=== PATIENT | male | born 1950 | race Caucasian/White ===

== ENCOUNTER 2020-10-30 10:01 | Outpatient (CLI) | payer BC, MEDICARE ==
--- NOTE | 2020-10-30 10:50 | XRAY Report ---
PROCEDURE: Foot 2 View LT INDICATIONS: LEFT FOOT ULCER TECHNIQUE: 2 views of the foot were acquired. COMPARISON: None FINDINGS: Bones: No fractures or dislocations. No suspicious bony lesions. No osseous erosive change or perio steal reaction. Plantar and dorsal calcaneal bone spur is noted. Soft tissues: No tibiotalar joint effusion. Achilles tendon appears normal. No soft tissue gas. IMPRESSION: No savana evidence of osteomyelitis. Please note plain from radiographs can be insensitive to changes of osteoarthritis in the initial 15 days and if there is continued clinical concern for myelitis, a t hree-phase nuclear medicine bone scan should be considered for further evaluation. Reviewed by: Magda Winston MD, PhD on 10/30/2020 10:48 AM PDT Approved by: Magda Winston MD, PhD on 10/30/2020 10:48 AM PDT Station ID: [id number]
[2020-10-30 14:34] LABS: BASOPHILS % (AUTO) 0.8 %; EOSINOPHILS # (AUTO) 0.2 10^3/uL (0.0-0.7); EOSINOPHILS % (AUTO) 4.4 %; HCT - HEMATOCRIT 46.5 % (42.0-52.0); HGB - HEMOGLOBIN 15.3 g/dL (14.0-18.0); LYMPHOCYTES # (AUTO) 1.7 10^3/uL (1.5-3.5); LYMPHOCYTES % (AUTO) 33.3 %; MEAN CORPUSCULAR HEMOGLOBIN 29.6 pg (27.0-31.0); MEAN CORPUSCULAR HGB CONC 32.9 g/dL (32.0-36.0); MEAN CORPUSCULAR VOLUME 89.9 fL (80.0-94.0); MEAN PLATELET VOLUME 9.6 fL (7.4-11.4); MONOCYTES # (AUTO) 0.5 10^3/uL (0.0-1.0); NEUTROPHILS # (AUTO) 2.6 10^3/uL (1.5-6.6); NEUTROPHILS % (AUTO) 52.3 %; PLT - PLATELET COUNT 250 10^3/uL (130-450); RED BLOOD COUNT 5.17 10^6/uL (4.70-6.10); RED CELL DISTRIBUTION WIDTH 12.1 % (12.0-15.0)
[2020-10-30 15:20] LABS: CREATININE,URINE 124.2 mg/dL; MICROALBUM/CREATININE RATIO,UR 16.9 ug/mg (<30.0); MICROALBUMIN,URINE 2.1 mg/dL (0-300.0)
[2020-10-30 15:30] LABS: ALBUMIN 4.4 g/dL (3.2-5.5); ALBUMIN/GLOBULIN RATIO 1.4 (1.0-2.2); ALKALINE PHOSPHATASE 48 IU/L (42-121); ALT ALANINE AMINOTRANSFERASE 17 IU/L (10-60); AST ASPARTATE AMINOTRANSFERASE 20 IU/L (10-42); BILIRUBIN,TOTAL 1.3 mg/dL (0.2-1.0); BUN - BLOOD UREA NITROGEN 26 mg/dL (6-20); CALCIUM 9.5 mg/dL (8.5-10.3); CARBON DIOXIDE - CO2 30 mmol/L (21-32); CHLORIDE 103 mmol/L (101-111); CHOL/HDL RATIO 4.3 (<5.0); CHOLESTEROL 242 mg/dL; CREATININE 0.9 mg/dL (0.6-1.2); GFR - MDRD 84 (>89); GLUCOSE 72 mg/dL (70-100); HDL CHOLESTEROL 56 mg/dL; LDL CHOLESTEROL,CALCULATED 161 mg/dL; LDL/HDL RATIO 2.9 (<3.6); POTASSIUM 4.1 mmol/L (3.5-5.0); SODIUM 139 mmol/L (135-145); TOTAL PROTEIN 7.5 g/dL (6.7-8.2); TRIGLYCERIDES 123 mg/dL; VLDL CHOLESTEROL 25 mg/dL
[2020-10-30 19:58] LABS: ESTIMATED AVERAGE GLUCOSE 194 mg/dL (70-100); HEMOGLOBIN A1c% 8.4 % (4.27-6.07)
== END 2020-10-30 23:59 | disposition home or self-care (01) ==
LOC: DI.S 10:01
PROVIDERS: ATTEND Physician Assistant Medical
DX: E11.621 Type 2 diabetes mellitus with foot ulcer (principal); E78.5 Hyperlipidemia, unspecified
CPT/HCPCS: 36415; 80053; 80061; 82043; 82570; 83036; 83721; 85025; 87070; 87077; 87181; 87205

== ENCOUNTER 2020-12-29 13:59 | Outpatient (CLI) | payer MEDICARE | END 2020-12-29 14:00 | disposition short-term general hospital (02) | LOC: EMS 13:59 | DX: R53.1 Weakness (principal); R05 Cough; R11.10 Vomiting, unspecified | CPT/HCPCS: A0425; A0429 ==

== ENCOUNTER 2021-01-05 23:39 | Outpatient (CLI) | payer MEDICARE | END 2021-01-05 23:40 | disposition short-term general hospital (02) | LOC: EMS 23:39 | DX: R10.9 Unspecified abdominal pain (principal); R11.0 Nausea | CPT/HCPCS: A0425; A0427 ==

== ENCOUNTER 2021-01-09 15:00 | Inpatient (IN) | payer MEDICARE ==
--- OUTSIDE RECORDS SUMMARY | 2021-01-09 15:04 | EXTERNAL MEDICAL SUMMARY RPT | Continuity of Care Document ---
:1950 Demographics Phone Unavailable Preferred Language Unknown Marital Status Unknown Caodaism Affiliation Unknown Race Unknown Ethnic Group Unknown Author Organization [facility] Address [address] [place] [address] Phone Care Team Providers Name Role Phone Registrar Unavailable Unavailable PA-C Unavailable Unavailable Nurse Unavailable Unavailable [place] Unavailable Unavailable Referrals Unavailable Unavailable Referrals Unavailable Unavailable Allergies Encounters Medications date description facility 20201113 INSULIN NPH HUMAN (ISOPHANE) Walk-In [facility] [place] [phone] [facility]IRIN [facility] [place] [id number] ASPIRIN [facility] [place] [phone] INSULIN NPH HUMAN (ISOPHANE) [facility]-In [facility] [place] [id number] SIMVASTATIN [facility] [place] [id number] CEPHALEXIN [facility] [place] [phone] INSULIN SYRINGE-NEEDLE U-100 Walk-In [facility] Care & [facility] [place] [phone] SIMVASTATIN [facility] [place] [phone] CEPHALEXIN [facility] [place] [phone] SIMVASTATIN [facility] [place] [phone] CEPHALEXIN [facility] [place] [phone] INSULIN SYRINGE-NEEDLE U-100 Walk-In [facility] [place] [phone] SIMVASTATIN [facility] [place] [phone] CEPHALEXIN [facility] [place] [phone] SIMVASTATIN [facility] [place] [id number] CEPHALEXIN [facility] [place] [phone] INSULIN SYRINGE-NEEDLE U-100 Walk-In [facility] [place] [phone] SIMVASTATIN [facility] [place] [phone] CEPHALEXIN [facility] [place] [phone] SIMVASTATIN [facility] [place] [phone] CEPHALEXIN [facility] [place] [phone] INSULIN SYRINGE-NEEDLE U-[address] Walk-In [facility] [place] [phone] SIMVASTATIN [facility] [place] [id number] CEPHALEXIN [facility] [place] [phone] SIMVASTATIN [facility] [place] [phone] CEPHALEXIN [facility] [place] 20201030 INSULIN SYRINGE-NEEDLE U-[address] Walk-In [facility] [place] [phone] SIMVASTATIN [facility] [place] 20201030 CEPHALEXIN [facility] [place] [phone] SIMVASTATIN [facility] [place] 20201030 CEPHALEXIN [facility] [place] 20201030 INSULIN SYRINGE-NEEDLE U-[address] Walk-In [facility] [place] [phone] SIMVASTATIN [facility] [place] 20201030 CEPHALEXIN [facility] [place] Problems date description facility 20201113 Total score? [facility] [place] 20201113 Tobacco use and exposure Walk-In [facility] & [facility] Services [facility] [place] 20201113 Tobacco smoking status NHIS Walk-In [facility] Primary Care & Ancillary Services [place] 20201113 Patient Health Questionnaire 2 item Wa lk-In Clinic Primary Care & (PHQ2) total score Ancillary Services [facility] [place] 20201113 Never smoker [facility] [place] 20201113 Malignant melanoma of skin of lower Wa lk-In Clinic Primary Care & limb, including hip Ancillary Services [facility] [place] 20201113 Malignant melanoma of left lower limb, Walk-In [facility] Primary [facility] & including hip [facility] [place] 20201113 Malignant melanoma of foot Walk-In [facility] Primary Care & [facility]illary Services [place] 20201113 Lymphadenopathy [facility] [place] 20201113 Little interest or pleasure in doing W alk-In Clinic Primary Care & things? Ancillary Services [place] 20201113 Generalized enlarged lymph nodes Walk- In [facility] Primary Care & Ancillary Services [place] 20201113 Feeling down, depressed, or hopeless? [facility] [place] 20201113 Enlargement of lymph nodes [facility] [place] 20201113 Details of drug misuse behavior [facility] [place] 20201113 Alcohol use [facility] [place] 20201104 Malignant melanoma of foot [facility] [place] 20201104 Exercise [facility] [place] 20201104 Total score? 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 left lower limb, Ancillar y Services [place] including hip 20201104 Tobacco use and exposure [facility] & [facility] [place] 20201104 Tobacco smoking status NHIS Walk-In in [facility] Care & [facility] Services [facility] [place] 20201104 Malignant melanoma of skin of lower Wa lk-In Clinic Primary Care & limb, including hip Ancillary Services [facility] [place] 20201104 Alcohol use [facility] [place] 20201104 Never smoker [facility] [place] 20201104 Health-related behavior [facility] [place] 20201104 Details of drug misuse behavior [facility] [place] 20201031 Details of drug misuse behavior [facility] [place] 20201031 Never smoker [facility] [place] 20201031 Health-related behavior [facility] [place] 20201031 Tobacco use and exposure [facility] [place] 20201031 Exercise [facility] [place] 20201031 Total score? 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 Walk[facility]In Clinic [facility] Care & Ancillary Services [facility] 20201030 Never smoker Walk-In [facility] Care & Ancillary Services [facility] 20201030 XR FOOT 2 VIEWS Walk-In Clinic [facility] Care & Ancillary Services [facility] 20201030 MICROALBUMIN/CREAT RATIO Walk[facility] 20201030 LIPIDS SCREEN Walk-In Clinic [facility] Care & Ancillary Services [facility] 20201030 Exercise Walk-In Clinic [facility] Care & Ancillary Services [facility] 20201030 Ulcer of left foot due to type 2 Walk- In Clinic Primary Care & diabetes mellitus [facility] 20201030 HGBA1C Walk-In Clinic [facility] Care & Ancillary Services [facility] 20201030 CBC W/Diff/Plt Walk-In Clinic [facility] Care & Ancillary Services [facility] 20201030 Alcohol use Walk-In Clinic [facility] Care & Ancillary Services [place] Procedures date description facility 20201030 Boostrix Intramuscular Suspension Walk -In Clinic Primary Care & 5-2.5-18.5 Ancillary Services [facility] 20201030 First Ix admin via ID IM or jet Walk-I n Clinic Primary Care & injects with counseling by physician [facility] Services [place] for adult 20201030 CBC W/Diff/Plt Walk-In Clinic [facility] 20201030 HGBA1C Walk-In Clinic [facility] Care & Ancillary Services [facility] 20201030 LIPIDS SCREEN Walk-In [facility] 20201030 COMPREHENSIVE METABOLIC PANEL Walk-In [facility] Primary Care & Ancillary Services [facility] 20201030 XR FOOT 2 VIEWS Walk-In Clinic [facility] Care & Ancillary Services [facility] 20201030 Boostrix Intramuscular Suspension Walk -In Clinic Primary Care & -2.5-18.5 [facility] 20201030 First Ix admin via ID IM or jet [facility] Primary Care & injects with counseling by physician [facility] [place] for adult 20201030 CBC W/Diff/Plt [facility] [place] 20201030 HGBA1C [facility] [place] [facility] [place] 20201030 LIPIDS SCREEN [facility] [place] [facility] [place] 20201030 COMPREHENSIVE METABOLIC PANEL [facility] [place] 20201030 XR FOOT 2 VIEWS [facility] [place] 20201030 Boostrix Intramuscular Suspension Walk -In [facility] Primary Care & 5-2.5-18.5 [facility]illary Services [facility] [place] 20201030 First Ix admin via ID IM or jet [facility] Primary [facility] & injects with counseling by physician [facility] [place] for adult 20201030 CBC W/Diff/Plt [facility] [place] [place] 20201030 HGBA1C [facility] [place] [facility] [place] 20201030 LIPIDS SCREEN [facility] [place] [facility] [place] 20201030 COMPREHENSIVE METABOLIC PANEL [facility] [place] 20201030 XR FOOT 2 VIEWS [facility] [place] [facility] [place] 20201030 Boostrix Intramuscular Suspension Walk -In [facility] Primary Care & 5-2.5-18.5 Ancillary Services [facility] [place] 20201030 First Ix admin via ID IM or jet [facility] Primary Care & injects with counseling by physician [facility] [place] for adult 20201030 CBC W/Diff/Plt [facility] [place] 20201030 HGBA1C [facility] [place] [facility] [place] 20201030 LIPIDS SCREEN [facility] [place] [facility] [place] 20201030 COMPREHENSIVE METABOLIC PANEL [facility] [place] 20201030 XR FOOT 2 VIEWS [facility] [place] [facility] [place] 20201030 Boostrix Intramuscular Suspension Walk -In Clinic Primary Care & 5-2.5-18.5 Ancillary Services [place] 20201030 First Ix admin via ID IM or jet [facility] [place] [facility] [id number] CBC W/Diff/Plt Walk-In Clinic [facility] Care & [facility]illary Services [place] 20201030 HGBA1C Walk[facility]In [facility] Care & [facility] [place] 20201030 LIPIDS SCREEN Walk-In [facility] Care & [facility] [place] 20201030 COMPREHENSIVE METABOLIC PANEL [facility] [place] 20201030 XR FOOT 2 VIEWS Walk-In [facility] Care & [facility]illary Services [place] 20201030 Boostrix Intramuscular Suspension Walk -In Clinic Primary Care & 5-2.5-18.5 Ancillary Services [place] 20201030 First Ix admin via ID IM or jet Walk[facility]I n Clinic Primary Care & injects with counseling by physician [facility] [place] for adult 20201030 CBC W/Diff/Plt Walk-In [facility] Care & [facility] [place] 20201030 HGBA1C Walk-In [facility] Care & [facility] [place] 20201030 LIPIDS SCREEN Walk-In [facility] Care & [facility] [place] 20201030 COMPREHENSIVE METABOLIC PANEL [facility] [place] 20201030 XR FOOT 2 VIEWS Walk-In [facility] Care & Ancillary Services [place] Results Vital Signs date measurement value source 20201030 weight_standard 222.2 lb [id number] weight_metric 100.79 kg 20201030 temperature_standard 97.2 F 20201030 temperature_metric 36.22 C 20201030 respiration_rate 14 /min 20201030 height_standard 72 in 20201030 height_metric 182.88 cm 20201030 heart_rate 65 /min 20201030 BP_systolic 144 mm[Hg] [id number] BP_diastolic 76 mm[Hg] 20201030 BMI 30.24 kg/m2 20201030 weight_standard 222.2 lb [id number] weight_metric 100.79 kg 20201030 temperature_standard 97.2 F 20201030 temperature_metric 36.22 C 20201030 respiration_rate 14 /min 20201030 height_standard 72 in 20201030 height_metric 182.88 cm 20201030 heart_rate 65 /min 20201030 BP_systolic 144 mm[Hg] [id number] BP_diastolic 76 mm[Hg] 20201030 BMI 30.24 kg/m2 20201030 weight_standard 222.2 lb 20201030 weight_metric 100.79 kg 20201030 temperature_standard 97.2 F 20201030 temperature_metric 36.22 C 20201030 respiration_rate 14 /min 20201030 height_standard 72 in 20201030 height_metric 182.88 cm 20201030 heart_rate 65 /min 20201030 BP_systolic 144 mm[Hg] 20201030 BP_diastolic 76 mm[Hg] 20201030 BMI 30.24 kg/m2 20201031 weight_standard 220.8 lb 20201031 weight_metric 100.15 kg 20201031 temperature_standard 98.2 F 20201031 temperature_metric 36.78 C 20201031 respiration_rate 14 /min 20201031 height_standard 72 in 20201031 height_metric 182.88 cm 20201031 heart_rate 63 /min 20201031 BP_systolic 128 mm[Hg] 20201031 BP_diastolic 68 mm[Hg] 20201031 BMI 30.05 kg/m2 20201104 weight_standard 220.2 lb 20201104 weight_metric 99.88 kg 20201104 temperature_standard 97.7 F 20201104 temperature_metric 36.5 C 20201104 respiration_rate 16 /min 20201104 height_standard 72 in 20201104 height_metric 182.88 cm 20201104 heart_rate 76 /min 20201104 BP_systolic 137 mm[Hg] 20201104 BP_diastolic 79 mm[Hg] 20201104 BMI 29.97 kg/m2 20201104 weight_standard 220.2 lb 20201104 weight_metric 99.88 kg 20201104 temperature_standard 97.7 F 20201104 temperature_metric 36.5 C 20201104 respiration_rate 16 /min 20201104 height_standard 72 in 20201104 height_metric 182.88 cm 20201104 heart_rate 76 /min 20201104 BP_systolic 137 mm[Hg] 20201104 BP_diastolic 79 mm[Hg] 20201104 BMI 29.97 kg/m2 20201104 weight_standard 220.2 lb 20201104 weight_metric 99.88 kg 20201104 temperature_standard 97.7 F 20201104 temperature_metric 36.5 C 20201104 respiration_rate 16 /min 20201104 height_standard 72 in 20201104 height_metric 182.88 cm 20201104 heart_rate 76 /min 20201104 BP_systolic 137 mm[Hg] 20201104 BP_diastolic 79 mm[Hg] 20201104 BMI 29.97 kg/m2 20201113 weight_standard 218.6 lb 20201113 weight_metric 99.16 kg 20201113 temperature_standard 97 F 20201113 temperature_metric 36.11 C 20201113 respiration_rate 16 /min 20201113 height_standard 72 in 20201113 height_metric 182.88 cm 20201113 heart_rate 63 /min 20201113 BP_systolic 134 mm[Hg] 20201113 BP_diastolic 75 mm[Hg] 20201113 BMI 29.75 kg/m2
--- OUTSIDE RECORDS SUMMARY | 2021-01-09 15:10 | EXTERNAL MEDICAL SUMMARY RPT | Continuity of Care Document ---
:1950 Demographics Phone Unavailable Preferred Language Unknown Marital Status Unknown Advent Affiliation Unknown Race Unknown Ethnic Group Unknown Author Organization [facility] Address [address] [id number] Phone Care Team Providers Name Role Phone Nurse, Dar Unavailable Unavailable ABELINO, Adilene Collins, Unavailable Unavailable Registrar, Taty Mejia, Patient Unavailable Unava ilable Referrals, Catarina Love, PFS, Unavailable Unavailab le Carolina, Provider Unavailable Unavailable Referrals, Roshni Aguilar, Unavailable Unavailable Allergies Encounters Medications date description facility [id number] INSULIN NPH HUMAN (ISOPHANE) [facility] Dar [phone] [facility]IN [facility] [place] [phone] [facility] [place] [phone] INSULIN NPH HUMAN (ISOPHANE) [facility] [place] [phone] SIMVASTATIN [facility] [place] [id number] CEPHALEXIN [facility] [place] [phone] INSULIN SYRINGE-NEEDLE U-100 [facility] Dar [phone] SIMVASTATIN [facility] [place] [phone] CEPHALEXIN [facility] [place] [phone] SIMVASTATIN [facility] [place] [id number] CEPHALEXIN [facility] [place] [phone] INSULIN SYRINGE-NEEDLE U-100 [facility] [place] [phone] SIMVASTATIN [facility] [place] [phone] CEPHALEXIN [facility] [place] [phone] SIMVASTATIN [facility] [place] [phone] CEPHALEXIN [facility] [place] [phone] INSULIN SYRINGE-NEEDLE U-100 [facility] [place] [phone] SIMVASTATIN [facility] [place] [phone] CEPHALEXIN [facility] [place] [phone] SIMVASTATIN [facility] [place] [phone] CEPHALEXIN [facility] [place] [phone] INSULIN SYRINGE-NEEDLE U-100 Walk[facility]In [facility] Primary Care & Ancillary Services Dar [phone] SIMVASTATIN [facility] [place] [phone] CEPHALEXIN [facility] [place] [phone] SIMVASTATIN [facility] [place] [phone] CEPHALEXIN [facility] [place] [phone] INSULIN SYRINGE-NEEDLE U-100 Walk[facility] Primary Care & Ancillary Services Dar [phone] SIMVASTATIN [facility] Services Dar [phone] [facility]IN [facility] [place] [facility] [place] [phone] SIMVASTATIN [facility] Services [place] [phone] [facility]PHALEXIN [facility] [place] [facility] [place] [phone] INSULIN SYRINGE-NEEDLE U-100 Walk[facility] Primary Care & Ancillary Services Dar [phone] SIMVASTATIN [facility] Services [place] [phone] CEPHALEXIN [facility] Services Dar Problems date description facility 20201113 Total score? [facility] [place] [facility] Services C darwin 20201113 Tobacco use and exposure [facility] Ancillary Services C darwin 20201113 Tobacco smoking status NHIS Walk[facility]In [facility] Primary Care & Ancillary Services C darwin 20201113 Patient Health Questionnaire 2 item Wa lk-In Clinic Primary Care & (PHQ2) total score Ancillary Services C darwin 20201113 Never smoker [facility] [place] & [facility] Services C darwin 20201113 Malignant melanoma of skin of lower [facility] lk[facility] Primary Care & limb, including hip Ancillary Services C darwin 20201113 Malignant melanoma of left lower limb, Walk[facility] Primary Care & including hip Ancillary Services C darwin 20201113 Malignant melanoma of foot Walk[facility]In [facility] Primary Care & Ancillary Services C darwin 20201113 Lymphadenopathy [facility] Care & Ancillary Services C darwin 20201113 Little interest or pleasure in doing W alk-In Clinic Primary Care & things? 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 [facility] Care & Ancillary Services [facility] 20201030 Never smoker [facility] XR FOOT 2 VIEWS Walk-In [facility] Care & Ancillary Services [facility] 20201030 MICROALBUMIN/CREAT RATIO [facility] 20[facility] LIPIDS SCREEN [facility] Care & Ancillary Services darwin 20201030 Exercise Walk[facility]In [facility] Care & Ancillary Services [facility] 20201030 Ulcer of left foot due to type 2 [facility] & diabetes mellitus [facility] HGBA1C [facility] 20[facility] CBC W/Diff/Plt [facility] Care & Ancillary Services [facility] 20201030 Alcohol use [facility] Care & Ancillary Services [facility] Procedures date description facility 20201030 Boostrix Intramuscular Suspension [facility] Primary Care & 5-2.5-18.5 [facility] First Ix admin via ID IM or jet [facility] Primary Care & injects with counseling by physician Anc [facility] Services Dar for adult 20201030 CBC W/Diff/Plt [facility] Care & Ancillary Services darwin 20201030 HGBA1C Walk[facility] Care & Ancillary Services [facility] 20201030 LIPIDS SCREEN [facility] Care & Ancillary Services [facility] 20201030 COMPREHENSIVE METABOLIC PANEL [facility] 20[facility]30 XR FOOT 2 VIEWS [facility] Care & Ancillary Services [facility] 20201030 Boostrix Intramuscular Suspension [facility] Primary Care & 5-2.5-18.5 Ancillary Services C darwin 20201030 First Ix admin via ID IM or jet [facility] Primary Care & injects with counseling by physician [facility] for adult 20201030 CBC W/Diff/Plt [facility] Care & Ancillary Services C darwin 20201030 HGBA1C [facility] Care & Ancillary Services C [place] 20201030 LIPIDS SCREEN [facility] Care & Ancillary [...] Services C darwin 20201030 HGBA1C [facility] Care & Ancillary Services C [place] 20201030 LIPIDS SCREEN [facility] Care & Ancillary Services C [place]win 20201030 COMPREHENSIVE METABOLIC PANEL [facility] Primary Care & Ancillary Services C adrwin 20201030 XR FOOT 2 VIEWS [facility] Care & Ancillary Services C darwin 20201030 Boostrix Intramuscular Suspension [facility] Primary Care & 5-2.5-18.5 Ancillary Services C [place]win 20201030 First Ix admin via ID IM or jet [facility] Primary Care & injects with counseling by physician [facility] for adult [id number] CBC W/Diff/Plt [facility] Care & Ancillary Services C [place] 20201030 HGBA1C [facility] Care & Ancillary Services C [place] 20201030 LIPIDS SCREEN [facility]ie Care & Ancillary [...] Care & injects with counseling by physician [facility] Services Dar for adult 20201030 CBC W/Diff/Plt Walk[facility]In [facility] Care & Ancillary Services C darwin 20201030 HGBA1C Walk-In [facility] Care & Ancillary Services C [place] 20201030 LIPIDS SCREEN [facility] Care & Ancillary Services C [place]win 20201030 COMPREHENSIVE METABOLIC PANEL [facility] Primary Care & Ancillary Services C [place]win 20201030 XR FOOT 2 VIEWS Walk-[facility] Care & Ancillary Services C [place]win 20201030 Boostrix Intramuscular Suspension Walk [facility] Primary Care & -2.5-18.5 Ancillary Services C [place]win 20201030 First Ix admin via ID IM or jet [facility] Primary Care & injects with counseling by physician [facility] Services [place] for adult 20201030 CBC W/Diff/Plt [facility] Care & Ancillary Services C [place] 20201030 HGBA1C Walk[facility] Care & Ancillary Services C darwin 20201030 LIPIDS SCREEN Walk-[facility] Care & Ancillary Services C darwin 20201030 COMPREHENSIVE METABOLIC PANEL [facility] Primary Care & Ancillary Services C [place]win 20201030 XR FOOT 2 VIEWS Walk[facility] Care & Ancillary Services darwin Results Vital Signs date measurement value source 20201030 weight_standard 222.2 lb [id number] weight_metric 100.79 kg 20201030 temperature_standard 97.2 F 20201030 temperature_metric 36.22 C 20201030 respiration_rate 14 /min 20201030 height_standard 72 in 20201030 height_metric 182.88 cm 20201030 heart_rate 65 /min 20201030 BP_systolic 144 mm[Hg] 20201030 BP_diastolic 76 mm[Hg] 20201030 BMI 30.24 kg/m2 20201030 weight_standard 222.2 lb [id number] weight_metric 100.79 kg 20201030 temperature_standard 97.2 F [...]
--- NOTE | 2021-01-09 15:36 | XRAY Report ---
PROCEDURE: Chest 1 View X-Ray INDICATIONS: Chest pain TECHNIQUE: One view of the chest was acquired. COMPARISON: None FINDINGS: Surgical changes and devices: Right chest wall Port-A-Cath tip is in the region of SVC. Lungs and pleura: No pleural effusions or pneumothorax. There is mild pulmonary vascular congestion. No definite focal infiltrate. Mediastinum: Mediastinal contours appear normal. Heart size is normal. Bones and chest wall: No suspicious bony lesions. Overlying soft tissues appear unremarkable. IMPRESSION: Mild pulmonary vascular congestion. No focal infiltrate, pleural effusion or pneumothorax. Reviewed by: Maury Ram MD on 01/09/2021 3:34 PM PDT Approved by: Maury Ram MD on 01/09/2021 3:34 PM PDT Station ID: [id number]
--- NOTE | 2021-01-09 16:54 | ED Physician Documentation ---
PD HPI DYSPNEA - Stated complaint Stated Complaint: LOW OXYGEN,HIGH HEART HR - Chief complaint Chief Complaint: Resp - History obtained from History obtained from: Patient, Family - History of Present Illness Timing - onset: How many weeks ago (3) Timing - onset during: Light activity Timing - duration: Weeks (3) Timing - details: Gradual onset, Still present, Waxing and waning Inciting event(s): URI Improved by: O2, Rest Worsened by: Exertion, Coughing Associated symptoms: Cough, Diaphoresis. No: Fever, Hemoptysis, Wheezing, Chest pain / discomfort, Palpitations, Bilateral edema, Unilateral edema Similar symptoms before: Diagnosis (pneumonia) Recently seen: Admitted - Additional information Additional information: 70-year-old male who has been recently diagnosed with melanoma to the left foot has had a wide excision and this is still healing and he has started Keytruda. He has had fatigue and dyspnea since. Review of Systems Constitutional: reports: Fever, Chills, Fatigue, Sweats Eyes: denies: Decreased vision Ears: denies: Ear pain Nose: denies: Rhinorrhea / runny nose, Congestion Throat: denies: Sore throat Cardiac: denies: Chest pain / pressure, Palpitations Respiratory: reports: Dyspnea, Cough GI: reports: Nausea, Vomiting (dry heaves only). denies: Abdominal Pain : reports: Other (recently started flowmax with improvement in stream.). denies: Dysuria, Frequency Skin: denies: Rash Musculoskeletal: denies: Neck pain, Back pain, Extremity pain PD PAST MEDICAL HISTORY - Past Medical History Past Medical History: Yes Endocrine/Autoimmune: Type 2 diabetes : Benign prostate hypertrophy Psych: None Musculoskeletal: None Derm: Psoriasis Other Past Medical History: Melanoma - Past Surgical History Past Surgical History: Yes Derm: Skin cancer surgery - Present Medications Home Medications: Ambulatory Orders Medication Instructions Recorded Confirmed Glucosamine HCl/Chondroitin Sommer 1 tab PO BID 12/03/20 12/10/20 [Glucosamine-Chondroitin Cap] Magnesium Oxide [Magnesium] 400 mg PO DAILY 12/03/20 12/10/20 Lidocaine/Prilocain 2.5% Cream 5 applic TOP UD #1 gm 12/10/20 [Emla 2.5% Cream] Amox/Clav 875/125 [Augmentin 1 tab PO BID 12/24/20 12/24/20 875/125 Tab] dronabinoL [Marinol] 1 - 2 tab PO DAILY 01/08/21 01/08/21 Cyclobenzaprine [Flexeril] 10 mg PO TID PRN 01/09/21 01/09/21 Docusate Sodium 100Mg Capsule 100 mg PO QID 01/09/21 01/09/21 [Colace 100Mg Capsule] Enoxaparin [Lovenox] 40 mg pe SUBQ DAILY 01/09/21 01/09/21 Insulin Lispro [Humalog] 1 unit SUBQ QID 01/09/21 01/09/21 Insulin NPH Human [NovoLIN N] 20 unit SUBQ QPM 01/09/21 01/09/21 Metoclopramide [Reglan] 10 mg PO Q6H PRN 01/09/21 01/09/21 Ondansetron HCl [Zofran] 4 mg PO QID 01/09/21 Promethazine [Phenergan] 25 mg PO QPM PRN 01/09/21 01/09/21 Tamsulosin HCl [Flomax] 0.4 mg PO DAILY 01/09/21 01/09/21 oxyCODONE [Roxicodone] 5 mg PO ONCE PRN 01/09/21 01/09/21 - Allergies Allergies/Adverse Reactions: Allergies Allergy/AdvReac Type Severity Reaction Status Date / Time enalapril AdvReac Respiratory Verified 01/09/21 15:21 - Social History Does the pt smoke?: No Smoking Status: Never smoker Does the pt drink ETOH?: No Does the pt have substance abuse?: No - Immunizations Immunizations are current?: Yes PD ED PE NORMAL - Vitals Vital signs reviewed: Yes (tachy and hypoxic) - General General: Alert and oriented X 3, Well developed/nourished, Other (The patient appears somnolent and has a flattened affect) - HEENT HEENT: Atraumatic, PERRL, EOMI - Neck Neck: Supple, no meningeal sign, No bony TTP - Cardiac Cardiac: No murmur, Other (tachycardic) - Respiratory Respiratory: Other (tachypneia is mild rhonchi in the right base is reproducible. ) - Abdomen Abdomen: Soft, Non tender - Back Back: No CVA TTP, No spinal TTP - Derm Derm: Normal color, Warm and dry, No rash - Extremities Extremities: No deformity, No edema, Other (There is a sock over the left foot and there is a drainage tube heading cephalad through the sock to the wound VAC. The wound itself is not examined.) - Neuro Neuro: nursing staffing coordinator 2-12 intact, No motor deficit, No sensory deficit, Normal speech Eye Opening: Spontaneous Motor: Obeys Commands Verbal: Oriented GCS Score: 15 - Psych Psych: Normal mood, Other (affect is flat.) Results - Vitals Vitals: Vital Signs - 24 hr 01/09/21 01/09/21 01/09/21 15:14 15:31 15:50 Temperature 36.9 C Heart Rate 101 H 101 H 103 H Respiratory 20 18 19 Rate Blood Pressure 122/61 127/64 129/61 O2 Saturation 80 L 98 97 01/09/21 01/09/21 01/09/21 16:20 16:30 17:00 Temperature 36.7 C 36.8 C Heart Rate 103 H 104 H 104 H Respiratory 22 20 20 Rate Blood Pressure 123/65 120/65 119/59 L O2 Saturation 96 100 96 Oxygen O2 Source Nasal cannula Oxygen Flow Rate 3 - EKG (time done) 1515 Rate: Rate (enter#) (100) Rhythm: Sinus tachycardia Ischemia: Normal ST segments Compare to prior EKG: Old EKG unavailable Computer interpretation: Agree with computer - Labs Labs: Laboratory Tests 01/09/21 01/09/21 01/09/21 13:52 13:58 17:10 WBC 10.0 RBC 3.17 L Hgb 9.2 L Hct 27.5 L MCV 86.8 MCH 29.0 MCHC 33.5 RDW 13.5 Plt Count 130 MPV 9.3 Neut # (Auto) Not Reportable Lymph # (Auto) Not Reportable [place] # (Auto) Not Reportable Eos # (Auto) Not Reportable Baso # (Auto) Not Reportable Absolute Nucleated RBC Not Reportable Total Counted 100 Band Neuts % (Manual) 5 Abnorm Lymph % (Manual) 0 Metamyelocytes % 3 H Myelocytes % 1 H Nucleated RBC % Not Reportable Neutrophils # (Manual) 6.8 H Lymphocytes # (Manual) 1.6 Monocytes # (Manual) 0.9 Eosinophils # (Manual) 0.1 Basophils # (Manual) 0.2 H Differential Comment MANUAL DIFFERENTIAL Manual Slide Review Indicated WBC Morphology NORMAL APPEARANCE Platelet Estimate NORMAL (130-450,000) Platelet Morphology NORMAL APPEARANCE RBC Morph Micro Appear 1+ POLYCHROMASIA Sodium Potassium Chloride Carbon Dioxide Anion Gap BUN Creatinine Estimated GFR (MDRD) Glucose Lactic Acid Calcium Total Bilirubin AST ALT Alkaline Phosphatase Troponin I High Sens 25.2 H* C-Reactive Protein B-Natriuretic Peptide 199 H Total Protein Albumin Globulin Albumin/Globulin Ratio Lipase 01/09/21 01/09/21 01/09/21 17:10 17:10 17:10 WBC RBC Hgb Hct MCV MCH MCHC RDW Plt Count MPV Neut # (Auto) Lymph # (Auto) [place] # (Auto) Eos # (Auto) Baso # (Auto) Absolute Nucleated RBC Total Counted Band Neuts % (Manual) Abnorm Lymph % (Manual) Metamyelocytes % Myelocytes % Nucleated RBC % Neutrophils # (Manual) Lymphocytes # (Manual) Monocytes # (Manual) Eosinophils # (Manual) Basophils # (Manual) Differential Comment Manual Slide Review WBC Morphology Platelet Estimate Platelet Morphology RBC Morph Micro Appear Sodium 130 L Potassium 4.1 Chloride 92 L Carbon Dioxide 28 Anion Gap 10.0 BUN 22 H Creatinine 1.1 Estimated GFR (MDRD) 67 L Glucose 159 H Lactic Acid 1.5 Calcium 8.6 Total Bilirubin 0.8 AST 19 ALT 18 Alkaline Phosphatase 244 H Troponin I High Sens 24.6 H* C-Reactive Protein B-Natriuretic Peptide Total Protein 5.6 L Albumin 2.3 L Globulin 3.3 Albumin/Globulin Ratio 0.7 L Lipase 14 L 01/09/21 17:10 WBC RBC Hgb Hct MCV MCH MCHC RDW Plt Count MPV Neut # (Auto) Lymph # (Auto) [place] # (Auto) Eos # (Auto) Baso # (Auto) Absolute Nucleated RBC Total Counted Band Neuts % (Manual) Abnorm Lymph % (Manual) Metamyelocytes % Myelocytes % Nucleated RBC % Neutrophils # (Manual) Lymphocytes # (Manual) Monocytes # (Manual) Eosinophils # (Manual) Basophils # (Manual) Differential Comment Manual Slide Review WBC Morphology Platelet Estimate Platelet Morphology RBC Morph Micro Appear Sodium Potassium Chloride Carbon Dioxide Anion Gap BUN Creatinine Estimated GFR (MDRD) Glucose Lactic Acid Calcium Total Bilirubin AST ALT Alkaline Phosphatase Troponin I High Sens C-Reactive Protein 19.8 H B-Natriuretic Peptide Total Protein Albumin Globulin Albumin/Globulin Ratio Lipase - Rads (name of study) CXR Radiology: Prelim report reviewed (Impression: Mild pulmonary vascular congestion. No focal infiltrate, pleural effusion or pneumothorax.), EMP read indepedently (On my read the patient has increased density in the right lower lobe consistent with physical exam findings of rhonchi and consistent with pneumonia.), See rad report Procedures - IVC sono (time) 1648 Bedside IVC sono: IVC measures (cm) (1.88), IVC collapsed c insp (cm) (1.26), Collapsibility index (0.32), Euvolemia PD MEDICAL DECISION MAKING - ED course Complexity details: reviewed old records, reviewed results, re-evaluated patient, considered differential, d/w patient, d/w family ED course: 70-year-old male with a recent diagnosis of melanoma of the left foot has been through surgery and is now on Keytruda and he is having issues with dry heaves shortness of breath hypoxia, sweats and fatigue. He has a reduced appetite. He has been seen in the MAC clinic and is sent to the emergency department for evaluation of hypoxia and today his oxygen saturation is 80% on room air this corrects up to 96% on 2 L nasal cannula. Departure - Departure Disposition: 66 [facility] DC/Xfer Clinical Impression: Pneumonia Qualifiers: Pneumonia type: due to unspecified organism Laterality: right Lung location: lower lobe of lung Qualified Code(s): J18.9 - Pneumonia, unspecified organism Condition: Stable
[2021-01-09] MEDS ORDERED: CEFEPIME 1 GM in SODIUM CHLORIDE 0.9% MINIBAG 100 ML IV STA (16:57)
[2021-01-09] MEDS ORDERED: VANCOMYCIN INJ 1 GM in SODIUM CHLORIDE 0.9% 500 ML IV STA (16:58)
[2021-01-09] MEDS ORDERED: VANCOMYCIN INJ 2 GM in SODIUM CHLORIDE 0.9% 500 ML IV STA (17:09)
[2021-01-09] MEDS ORDERED: ACETAMINOPHEN 325 MG TABLET PO PRN (17:11)
[2021-01-09] MEDS ORDERED: ONDANSETRON 4 MG/2 ML VIAL IVP PRN (17:11)
[2021-01-09 17:19] LABS: BASOPHILS % (AUTO) 0.4 %; EOSINOPHILS % (AUTO) 0.2 %; HCT - HEMATOCRIT 27.5 % (42.0-52.0); HGB - HEMOGLOBIN 9.2 g/dL (14.0-18.0); LYMPHOCYTES % (AUTO) 18.1 %; MEAN CORPUSCULAR HGB CONC 33.5 g/dL (32.0-36.0); MEAN CORPUSCULAR VOLUME 86.8 fL (80.0-94.0); MEAN PLATELET VOLUME 9.3 fL (7.4-11.4); MONOCYTES % (AUTO) 7.4 %; NEUTROPHILS % (AUTO) 66.5 %; PLT - PLATELET COUNT 130 10^3/uL (130-450); RED BLOOD COUNT 3.17 10^6/uL (4.70-6.10); RED CELL DISTRIBUTION WIDTH 13.5 % (12.0-15.0)
[2021-01-09 17:21] LABS: SLIDE REVIEW? Indicated
--- NOTE | 2021-01-09 17:27 | HISTORY & PHYSICAL EXAMINATION ---
Chief Complaint - Chief Complaint Chief Complaint: SOB History of Present Illness - Admitted From Admitted From:: ER - History Obtained From Records Reviewed: [facility] History obtained from: pt Exam Limitations: no - History of Present Illness HPI Comment/Other: This is a 70-yrs-old male with a PMH significant for uncontrolled diabetes, left foot ulcer, diagnosis of positive Malignant Melanoma at October 2020 with locally advanced involving left leg, left plantar foot, left inguinal lymph nodes and left pelvic lymph nodes, surgical resection partial of left bottom foot with wound VAC, which was done at [place], who was brought over from [facility] for shortness of breath. pt has been seen his wound care in the [facility] clinic. He is sent to the emergency department for evaluation of hypoxia. Pt was found Afebrile in ER but has only 80% sat on room air at ER with Tachycardia. pt also report he had 100 degree temperature at home with sweats and fatigue. pt report he Started Keytruda Dec, 2020. he will have combination immune therapy, pt is followup with oncologist Dr. Ilda Lee. Pt denies chest pain, headache. Routine laboratory tests show his WBC is 10, Hemoglobin is 9.2, BUN 22, creatinine 1.1, glucose 159, Troponin 25, BNP 199. CXR reveals Mild pulmonary vascular congestion, no focal infiltrate, pleural effusion or pneumothorax. Discussed the care goal with patient, patient request full code History - Past Medical History Endocrine/Autoimmune: reports: Type 2 diabetes : reports: Benign prostate hypertrophy Psych: reports: None Musculoskeletal: reports: None Derm: reports: Psoriasis MRSA Hx?: No Other Past Medical History: Melanoma - Past Surgical History Derm: reports: Skin cancer surgery - Family & Social History Family History: Mother: , Father: Family History Comment/Other: Patient report his father at age 89 from pneumonia. His mother in the age 69 from lung cancer with heavy smoking Social History Notes: Patient denies history of cigarette smoking, alcohol or drug issue Meds/Allgy - Home Medications Home Medications: Ambulatory Orders Medication Instructions Recorded Confirmed Glucosamine HCl/Chondroitin Sommer 1 tab PO BID 12/03/20 12/10/20 [Glucosamine-Chondroitin Cap] Magnesium Oxide [Magnesium] 400 mg PO DAILY 12/03/20 12/10/20 Lidocaine/Prilocain 2.5% Cream 5 applic TOP UD #1 gm 12/10/20 [Emla 2.5% Cream] Amox/Clav 875/125 [Augmentin 1 tab PO BID 12/24/20 12/24/20 875/125 Tab] dronabinoL [Marinol] 1 - 2 tab PO DAILY 01/08/21 01/08/21 Cyclobenzaprine [Flexeril] 10 mg PO TID PRN 01/09/21 01/09/21 Docusate Sodium 100Mg Capsule 100 mg PO QID 01/09/21 01/09/21 [Colace 100Mg Capsule] Enoxaparin [Lovenox] 40 mg pe SUBQ DAILY 01/09/21 01/09/21 Insulin Lispro [Humalog] 1 unit SUBQ QID 01/09/21 01/09/21 Insulin NPH Human [NovoLIN N] 20 unit SUBQ QPM 01/09/21 01/09/21 Metoclopramide [Reglan] 10 mg PO Q6H PRN 01/09/21 01/09/21 Ondansetron HCl [Zofran] 4 mg PO QID 01/09/21 Promethazine [Phenergan] 25 mg PO QPM PRN 01/09/21 01/09/21 Tamsulosin HCl [Flomax] 0.4 mg PO DAILY 01/09/21 01/09/21 oxyCODONE [Roxicodone] 5 mg PO ONCE PRN 01/09/21 01/09/21 - Allergies Allergies/Adverse Reactions: Allergies Allergy/AdvReac Type Severity Reaction Status Date / Time enalapril AdvReac Respiratory Verified 01/09/21 15:21 Review of Systems - Constitutional Constitutional: reports: Fatigue, Fever, Weakness, Poor appetite, Night sweats. denies: Chills, Malaise, Diaphoresis - Eyes Eyes: denies: Pain, Blurred vision, Field loss, Vision loss - Ears, Nose & Throat Ears, Nose & Throat: denies: Ear pain, Vertigo, Nosebleeds, Bleeding gums - Cardiovascular Cariovascular: denies: Irregular heart rate, Palpitations, Chest pain, Edema, Lightheadedness, Syncope, Exertional dyspnea, Decr. exercise tolerance - Respiratory Respiratory: reports: SOB at rest, SOB with exertion. denies: Cough, Sputum production, Wheezing, Hemoptysis, Orthopnea - Gastrointestinal Gastrointestinal: denies: Abdominal pain, Constipation, Diarrhea, Black stools, Bloody stools, Nausea, Vomiting - Genitourinary Genitourinary: denies: Dysuria, Urgency, Incontinence - Musculoskeletal Musculoskeletal: denies: Muscle pain, Muscle aches, Limited range of motion - Integumentary Integumentary: reports: Lesions, Pigment changes. denies: Rash, Lumps - Neurological Neurological: denies: Focal weakness, Headache, Dizziness, Numbness, Pre- existing deficit, Abnormal gait, Seizures, Incoordination, Slurred speech - Psychiatric Psychiatric: denies: Depression, Delusions - Endocrine Endocrine: denies: Polyuria, Polyphagia - Hematologic/Lymphatic Hematologic/Lymphatic: denies: Anemia, Petechiae, Blood clots Prior Level of Functionality: Patient is independent in the home Exam - Vital Signs Vital Signs: Vital Signs x48h Temp Pulse Resp BP Pulse Ox 01/09/21 17:00 36.8 C 104 H 20 119/59 L 96 01/09/21 16:30 104 H 20 120/65 100 01/09/21 16:20 36.7 C 103 H 22 123/65 96 01/09/21 15:50 103 H 19 129/61 97 01/09/21 15:31 101 H 18 127/64 98 01/09/21 15:14 36.9 C 101 H 20 122/61 80 L - Physical Exam General Appearance: positive: No acute distress, Alert. negative: Lethargic Eyes Bilateral: positive: Normal inspection, PERRL, No lid inflammation ENT: positive: ENT inspection nml, No signs of dehydration. negative: Purulent nasal drainage Neck: positive: Nml inspection, Trachea midline. negative: Thyromegaly, Tracheal deviation Respiratory: positive: Chest non-tender, No respiratory distress, Rhonchi, Other (right lower with mild crackles lung sound but left lower and middle lobe with signficant reduced lung sound.) Cardiovascular: positive: Regular rate & rhythm, No murmur, Tachycardia. ne gative: Bradycardia, Systolic murmur, Diastolic murmur Peripheral Pulses: positive: 2+ Abdomen: positive: Non-tender, Nml bowel sounds, No distention. negative: Tenderness, Guarding Back: positive: Nml inspection Skin: positive: Color nml, Dry, Other (cold at lower extremities. left planter foot covered by wound VAC, no drainage fluid at VAC machine. There is healing skin with black color with suture on left groin area.). negative: Cyanosis, Diaphoresis Extremities: positive: Non-tender, Full ROM. negative: Pedal edema, Calf tenderness Neurologic/Psychiatric: positive: Oriented x3, Motor nml, Sensation nml, Mood/affect nml. negative: Weakness, Sensory loss, Facial droop, Slurred/abnml speech, Depressed mood/affect Conclusion/Plan - Problem List (1) Respiratory failure with hypoxia Conclusion/Plan: Pt Develop hypoxia with shortness breathing at [facility] clinic. Patient had 80% sats on room air, with tachycardia. Patient has normal range WBC, patient has no f ever in ER. Per the patient report he had 100 degree temperature at home with sweating. Chest x-ray show mild pulmonary congestion, no local infiltrate. Patient had large ulcer/wound at left plantar feet with VAC, but no drainage yet. Patient has history of melanoma in immunotherapy which started about 2 weeks ago with Keytruda. ER already started with antibiotics, Blood culture is pending. Patient report he had first dosage of COVID-19 vaccine, COVID-19 test is pending. We will continue antibiotics, predinsone for his possible pneumonitis because of recently Keytruda, check CTA to r/o PE Because of her recently surgery, melanoma hx. Supplement oxygen as needed (2) Acral lentiginous melanoma Conclusion/Plan: Patient had a diagnosis in October of this year with metastatic melanoma. pt had surgery to remove Melanoma lesion done by [facility] recently, and on immune therapy by Dr. Lee, followup with his oncologist closely as out-pt (3) Ulcer of left foot Conclusion/Plan: pt had wound ulcer from resection of acral lentiginous melanoma and uncontrolled diabetes wound ulcer as well. pt had wound VAC, continue [facility] wound care (4) Diabetes Conclusion/Plan: we will start slide scale, glucose check, and hypoglycemia protocol, and check A1C (5) BPH (benign prostatic hyperplasia) Conclusion/Plan: we will resume home Flomax (6) Elevated troponin Conclusion/Plan: pt had slight elevated troponin 25, repeat troponin at 24. pt denies chest pain. it is likely from demand ischemia. will order EKG (7) Elevated brain natriuretic peptide (BNP) level Conclusion/Plan: pt had slight elevated BNP, sodium 130, with mild pulmonary congestion but pt has no lower extremities edema. we will hold IVF for pt, continue check BNP, order ECHO - Lab Results Fish Bones: 01/09/21 17:10 01/09/21 17:10 Core Measures - Anticipated LOS I expect patient to be DC'd or transferred within 96 hours.: Yes - DVT/VTE - Prophylaxis VTE/DVT Device ordered at admit?: Yes VTE/DVT Prophylaxis med ordered at admit?: Yes
[2021-01-09 17:34] LABS: ALBUMIN 2.3 g/dL (3.2-5.5); ALBUMIN/GLOBULIN RATIO 0.7 (1.0-2.2); BILIRUBIN,TOTAL 0.8 mg/dL (0.2-1.0); CALCIUM 8.6 mg/dL (8.5-10.3); CREATININE 1.1 mg/dL (0.6-1.2); POTASSIUM 4.1 mmol/L (3.5-5.0); TOTAL PROTEIN 5.6 g/dL (6.7-8.2)
[2021-01-09 17:47] LABS: ABNORMAL LYMPHS % (MANUAL) 0 %
[2021-01-09 17:48] LABS: BAND NEUTROPHILS % (MANUAL) 5 %; BASOPHILS # (MANUAL) 0.2 10^3/uL (0-0.1); BASOPHILS % (MANUAL) 2 %; EOSINOPHILS # (MANUAL) 0.1 10^3/uL (0-0.7); LYMPHOCYTES # (MANUAL) 1.6 10^3/uL (1.5-3.5); LYMPHOCYTES % (MANUAL) 16 %; METAMYELOCYTES % (MANUAL) 3 %; MONOCYTES # (MANUAL) 0.9 10^3/uL (0.0-1.0); MYELOCYTES % (MANUAL) 1 %; NEUTROPHILS # (MANUAL) 6.8 10^3/uL (1.5-6.6)
[2021-01-09 17:49] LABS: DIFFERENTIAL COMMENT MANUAL DIFFERENTIAL; PLATELET ESTIMATE, MANUAL NORMAL (130-450,000) (NORMAL); PLATELET MORPHOLOGY NORMAL APPEARANCE (NORMAL); WBC MORPHOLOGY (MULTIPLE) NORMAL APPEARANCE (NORMAL)
[2021-01-09] MEDS ORDERED: predniSONE 20 MG TABLET PO SCH (18:00)
--- OUTSIDE RECORDS SUMMARY | 2021-01-09 18:06 | EXTERNAL MEDICAL SUMMARY RPT | Continuity of Care Document ---
:1950 Demographics Phone Unavailable Preferred Language Unknown Marital Status Unknown Holiness Affiliation Unknown Race Unknown Ethnic Group Unknown Author Organization [facility] [address] [place] [address] Phone Care Team Providers Name Role Phone PA-C Unavailable Unavailable Carolina Unavailable Unavailable Referrals Unavailable Unavailable Nurse Unavailable Unavailable Referrals Unavailable Unavailable Registrar Unavailable Unavailable Allergies Encounters Medications date description facility [id number] INSULIN NPH HUMAN (ISOPHANE) Walk-In [facility] [place] [phone] [facility]IRIN [facility] [place] [phone] ASPIRIN [facility] [place] [phone] INSULIN NPH HUMAN (ISOPHANE) Walk[facility]In [facility] [place] [phone] SIMVASTATIN [facility] [place] [phone] CEPHALEXIN [facility] [place] [phone] INSULIN SYRINGE-NEEDLE U-100 Walk-In [facility] [place] [phone] SIMVASTATIN [facility] [place] [phone] [facility]PHALEXIN [facility] [place] [phone] SIMVASTATIN [facility] [place] [phone] [facility]PHALEXIN [facility] [place] [phone] INSULIN SYRINGE-NEEDLE U-100 Walk-In [facility] [place] [phone] SIMVASTATIN [facility] [place] [phone] CEPHALEXIN [facility] [place] [phone] SIMVASTATIN [facility] [place] [phone] CEPHALEXIN [facility] [place] [phone] INSULIN SYRINGE-NEEDLE U-100 Walk-In [facility] [place] [phone] SIMVASTATIN [facility] [place] [phone] CEPHALEXIN [facility] [place] [phone] SIMVASTATIN [facility] [place] [phone] CEPHALEXIN [facility] [place] [phone] INSULIN SYRINGE-NEEDLE U-100 Walk[facility]In [facility] [place] [phone] SIMVASTATIN [facility] [place] 20201030 CEPHALEXIN [facility] [place] 20201030 SIMVASTATIN [facility] [place] 20201030 CEPHALEXIN [facility] [place] 20201030 INSULIN SYRINGE-NEEDLE U-100 Walk[facility]In [facility] [place] [phone] SIMVASTATIN [facility] [place] 20201030 CEPHALEXIN [facility] [place] [phone] SIMVASTATIN [facility] [place] 20201030 CEPHALEXIN [facility] [place] 20201030 INSULIN SYRINGE-NEEDLE U-100 [facility]In [facility] [place] 20201030 SIMVASTATIN [facility] [place] 20201030 CEPHALEXIN [facility] [place] Problems date description facility 20201113 Total score? [facility] [place] 20201113 Tobacco use and exposure Walk-In [facility] Care & Anc[facility] Services [facility] [place] 20201113 Tobacco smoking status NHIS Walk-In [facility] Primary Care & Ancillary Services C [...] [place] 20201113 Malignant melanoma of foot Walk-In [facility] Primary Care & Ancillary Services [place] 20201113 Lymphadenopathy [facility] Services [facility] [place] 20201113 Little interest or pleasure in doing W alk-In Clinic Primary Care & things? Ancillary Services [place] 20201113 Generalized enlarged lymph nodes Walk- In [facility] Primary Care & Ancillary Services [...] foot with fat layer exposed Ancillary Services [place] 20201030 Health-related behavior Walk-In [facility] Primary Care & Ancillary Services [facility] 20201030 Details of drug misuse behavior [facility] 20201030 COMPREHENSIVE METABOLIC PANEL Walk-In [facility] Primary Care & Ancillary Services [facility] 20201030 Wound Aerobic Culture & Gram Stain Wal k-In [facility] Primary Care & Ancillary Services [facility] 20201030 Total score? Walk[facility]In [facility] Care & Ancillary Services [facility] 20201030 Never smoker Walk[facility] Care & Ancillary Services [facility] 20201030 XR FOOT 2 VIEWS Walk-[facility] Care & Ancillary Services [facility] 20201030 MICROALBUMIN/CREAT RATIO [facility] 20201030 LIPIDS SCREEN Walk-In [facility] Care & Ancillary Services [facility] 20201030 Exercise Walk-In [facility] Care & Ancillary Services 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 20201030 CBC W/Diff/Plt Walk[facility]In [facility] Care & Ancillary Services [facility] 20201030 Alcohol use Walk-In [facility] Care & Ancillary Services [place] Procedures date description facility 20201030 Boostrix Intramuscular Suspension Walk -In Clinic Primary Care & 5-2.5-18.5 Ancillary Services [facility] 20201030 First Ix admin via ID IM or jet Walk-I n Clinic Primary Care & injects with counseling by physician [facility] Services [place] for adult 20201030 CBC W/Diff/Plt Walk-[facility] Care & [facility]illary Services [facility] 20201030 HGBA1C Walk-In [facility] Care & Ancillary Services [facility] 20201030 LIPIDS SCREEN [facility] Care [facility]illary Services [facility] 20201030 COMPREHENSIVE METABOLIC PANEL Walk-In [facility] Primary Care & Ancillary Services [facility] 20201030 XR FOOT 2 VIEWS Walk-In [facility] Care & Ancillary Services [facility] 20201030 Boostrix Intramuscular Suspension Walk -In [facility] Primary Care & -2.5-18.5 Ancillary Services [facility] 20201030 First Ix admin via ID IM or jet [facility] Primary Care & injects with counseling by physician [facility] [place] for adult 20201030 CBC W/Diff/Plt [facility] & [facility] Services [facility] [place] 20201030 HGBA1C [facility] [place] [facility] Care & Ancillary Services [facility] [place] 20201030 LIPIDS SCREEN [facility] [place] [facility] Care & Ancillary Services C [place] [...] for adult 20201030 CBC W/Diff/Plt [facility] [place] [facility] Care & Ancillary Services [facility] [place] 20201030 HGBA1C [facility] [place] [facility] Care & Ancillary Services [facility] [place] 20201030 LIPIDS SCREEN [facility] [place] [facility] Care & Ancillary Services [facility] [place] 20201030 COMPREHENSIVE METABOLIC PANEL [facility] [place] 20201030 XR FOOT 2 VIEWS [facility] [place] [facility] Care & Ancillary Services C [place] [...] Services C [place] 20201030 HGBA1C [facility] [place] [facility] Care & Ancillary Services [facility] [place] 20201030 LIPIDS SCREEN [facility] [place] [facility] Care & Ancillary Services [facility] [place] 20201030 COMPREHENSIVE METABOLIC PANEL [facility] Services [facility] [place] 20201030 XR FOOT 2 VIEWS [facility] [place] [facility] Care & Ancillary Services [facility] [place] 20201030 Boostrix Intramuscular Suspension Walk -In Clinic Primary Care & 5-2.5-18.5 Ancillary Services [facility] [place] 20201030 First Ix admin via ID IM or jet [facility] Primary Care & injects with counseling [facility] [place] for adult [id number] CBC W/Diff/Plt Walk-In [facility] Care & Ancillary Services [facility] [place] 20201030 HGBA1C Walk[facility]In [facility] Care & Ancillary Services [facility] [place] 20201030 LIPIDS SCREEN Walk-[facility] Care & Ancillary Services [facility] [place] 20201030 COMPREHENSIVE METABOLIC PANEL [facility] & Ancillary Services [facility] [place] 20201030 XR FOOT 2 VIEWS Walk-[facility] Care & Ancillary Services [facility] [place] 20201030 Boostrix Intramuscular Suspension Walk -In Clinic Primary Care & 5-2.5-18.5 Ancillary Services [place] 20201030 First Ix admin via ID IM or jet Walk[facility]I n Clinic Primary Care & injects with counseling by physician [facility] Services [place] for adult 20201030 CBC W/Diff/Plt Walk-[facility] Care & Ancillary Services [facility] [place] 20201030 HGBA1C Walk[facility] Care & Ancillary Services [place] 20201030 LIPIDS SCREEN Walk-[facility] Care & Ancillary Services [facility] [place] 20201030 COMPREHENSIVE METABOLIC PANEL [facility] Ancillary Services [facility] [place] 20201030 XR FOOT 2 VIEWS Walk[facility] Care & Ancillary Services [place] Results Vital Signs date measurement value source 20201030 weight_standard 222.2 lb [id number] weight_metric 100.79 kg 20201030 temperature_standard 97.2 F 20201030 temperature_metric 36.22 C 20201030 respiration_rate 14 /min 20201030 height_standard 72 in 20201030 height_metric 182.88 cm 20201030 heart_rate 65 /min 20201030 BP_systolic 144 mm[Hg] [id number] BP_diastolic 76 mm[Hg] 20201030 BMI 30.24 kg/m2 20201030 weight_standard 222.2 lb [id number] weight_metric 100.79 kg 20201030 temperature_standard 97.2 F 20201030 temperature_metric 36.22 C 20201030 respiration_rate 14 /min 20201030 height_standard 72 in 20201030 height_metric 182.88 cm 20201030 heart_rate 65 /min 20201030 BP_systolic 144 mm[Hg] [id number] BP_diastolic 76 mm[Hg] 20201030 BMI 30.24 kg/m2 [...]
[2021-01-09 18:39] LABS: ABSOLUTE RETICS # AUTO 0.075 10^6/uL (0.020-0.110); RED BLOOD COUNT 3.16 10^6/uL (4.70-6.10); RETICULOCYTE COUNT % (AUTO) 2.37 % (0.5-2.3)
[2021-01-09 18:52] LABS: % IRON SATURATION 27 % (20-50); IRON 43 ug/dL (45-182); TOTAL IRON BINDING CAPACITY 158 ug/dL (250-450); TRANSFERRIN 113 mg/dL (180-329)
[2021-01-09] MEDS: SACCHAROMYCES BOULARDII 250 MG CAPSULE PO SCH (19:00)
[2021-01-09 19:05] LABS: B. PARAPERTUSSIS- RESP PCR PAN NOT DETECTED; B. PERTUSSIS- RESP PCR PANEL NOT DETECTED; C. PNEUMONIAE- RESP PCR PANEL NOT DETECTED; CORONAVIRUS 229E-RESP PCR NOT DETECTED; CORONAVIRUS HKU1-RESP PCR NOT DETECTED; CORONAVIRUS NL63-RESP PCR NOT DETECTED; CORONAVIRUS OC43-RESP PCR NOT DETECTED; HUMAN METAPNEUMOVIRUS NOT DETECTED; INFLUENZA A- RESP PCR PANEL NOT DETECTED; INFLUENZA B - RESP PCR PANEL NOT DETECTED; M. PNEUMONIAE- RESP PCR PANEL NOT DETECTED; PARAINFLUENZA VIRUS 1 NOT DETECTED; PARAINFLUENZA VIRUS 2 NOT DETECTED; PARAINFLUENZA VIRUS 3 NOT DETECTED; PARAINFLUENZA VIRUS 4 NOT DETECTED; RHINOVIRUS/ENTEROVIRUS NOT DETECTED; RSV- RESP PCR PANEL NOT DETECTED; SARS-CoV-2 -RESP PCR PANEL NOT DETECTED
[2021-01-09] MEDS: FERROUS SULFATE 325 MG TABLET PO SCH (20:31)
[2021-01-09 20:37] LABS: ESTIMATED AVERAGE GLUCOSE 258 mg/dL (70-100); HEMOGLOBIN A1c% 10.6 % (4.27-6.07)
[2021-01-09] MEDS ORDERED: INSULIN ASPART 300 UNIT/3 ML PEN SUBQ SCH (21:00)
[2021-01-09] MEDS ORDERED: INSULIN GLARGINE 300 UNIT/3 ML PEN SUBQ SCH (21:00)
[2021-01-09] MEDS ORDERED: IOVERSOL 320 100 ML VIAL IVP ONE ×2 (23:01→23:07)
[2021-01-10] MEDS: CEFEPIME 1 GM in SODIUM CHLORIDE 0.9% MINIBAG 100 ML IV SCH ×2 (00:40→08:56)
[2021-01-10] MEDS: SODIUM CHLORIDE FLUSH 0.9% 10 ML SYRINGE IVP SCH ×3 (00:41→16:55)
--- NOTE | 2021-01-10 08:21 | CT Report ---
PROCEDURE: ANGIO CHEST W/WO INDICATIONS: Shortness of breath CONTRAST: IV CONTRAST: Optiray 320 ml: 80 PO CONTRAST: *NO PO CONTRAST TECHNIQUE: After the administration of intravenous contrast, 2 mm thick sections acquired from the pulmonary api roque to the posterior costophrenic angles. 3-dimensional maximum intensity projection (MIP) coronal a nd sagittal reformats were then acquired through the thorax. For radiation dose reduction, the follow ing was used: automated exposure control, adjustment of mA and/or kV according to patient size. COMPARISON: None FINDINGS: Image quality: Excellent. Pulmonary arteries: Pulmonary arteries are normal in size, and demonstrate no intraluminal filling d efects to suggest central pulmonary embolism. Lungs and pleura: Small bilateral pleural effusions with findings of moderate to severe pulmonary miki ma. Small areas of consolidation may be related to pulmonary edema as well, and are associated with s ome with subsegmental atelectasis in the left lower lobe, lingula, right middle lobe, and right lower lobe. Mediastinum: Heart size is normal, without pericardial effusion. No mediastinal or hilar adenopathy . Thoracic aorta is normal in caliber and enhancement. Esophagus is normal in caliber, without hiat al hernia. Bones and chest wall: No suspicious bony lesions. Ribs and thoracic spine appear intact throughout. No axillary or supraclavicular adenopathy. The thyroid is normal in size and there is no incidenta lly thyroid nodule identified. Abdomen: Increased intermediate attenuation of the gallbladder which may reflect sludge or vicarious secretion of contrast. Dilated calyx versus peripelvic cyst in the right upper pole kidney. Proximal right ureter appears normal caliber. The spleen is enlarged measuring up to 18 cm in maximum cranioca udal dimension. IMPRESSION: No findings of pulmonary embolus. Small bilateral pleural effusions with findings of moderate to severe pulmonary edema. Splenomegaly measuring up to 18 cm, etiology unknown. Reviewed by: Bandar Bonner MD on 01/10/2021 8:20 AM PDT Approved by: Bandar Bonner MD on 01/10/2021 8:20 AM PDT Station ID: [id number]
[2021-01-10] MEDS: FERROUS SULFATE 325 MG TABLET PO SCH (08:56)
[2021-01-10] MEDS: TAMSULOSIN 0.4 MG CAPSULE PO SCH (08:56)
[2021-01-10] MEDS: SACCHAROMYCES BOULARDII 250 MG CAPSULE PO SCH ×2 (08:56→16:48)
[2021-01-10] MEDS: ENOXAPARIN 40 MG/0.4 ML SYRINGE SUBQ SCH (08:57)
[2021-01-10] MEDS ORDERED: INSULIN GLARGINE 300 UNIT/3 ML PEN SUBQ SCH (09:00)
[2021-01-10 09:12] LABS: BASOPHILS # (AUTO) 0.1 10^3/uL (0.0-0.1); BASOPHILS % (AUTO) 0.8 %; EOSINOPHILS % (AUTO) 0.4 %; HGB - HEMOGLOBIN 10.7 g/dL (14.0-18.0); LYMPHOCYTES # (AUTO) 1.1 10^3/uL (1.5-3.5); MEAN CORPUSCULAR HEMOGLOBIN 28.5 pg (27.0-31.0); MEAN CORPUSCULAR HGB CONC 32.4 g/dL (32.0-36.0); MEAN CORPUSCULAR VOLUME 87.8 fL (80.0-94.0); MEAN PLATELET VOLUME 9.2 fL (7.4-11.4); MONOCYTES # (AUTO) 0.7 10^3/uL (0.0-1.0); MONOCYTES % (AUTO) 6.6 %; NEUTROPHILS # (AUTO) 8.1 10^3/uL (1.5-6.6); NEUTROPHILS % (AUTO) 72.9 %; NRBC ABSOLUTE COUNT (AUTO) 0.09 x10^3/uL; NUCLEATED RED BLOOD CELLS AUTO 0.8 /100WBC; PLT - PLATELET COUNT 134 10^3/uL (130-450); RED BLOOD COUNT 3.76 10^6/uL (4.70-6.10); RED CELL DISTRIBUTION WIDTH 13.7 % (12.0-15.0); WHITE BLOOD COUNT 11.1 x10^3/uL (4.8-10.8)
[2021-01-10 09:18] LABS: SLIDE REVIEW? Indicated
[2021-01-10 09:32] LABS: CALCIUM 8.5 mg/dL (8.5-10.3); CREATININE 1.1 mg/dL (0.6-1.2); POTASSIUM 4.7 mmol/L (3.5-5.0)
[2021-01-10 09:40] LABS: RBC MORPHOLOGY (MULTIPLE) 2+ ANISOCYTOSIS (NORMAL)
[2021-01-10] MEDS ORDERED: INSULIN ASPART 300 UNIT/3 ML PEN SUBQ ONE (10:07)
[2021-01-10] MEDS: FUROSEMIDE 20 MG/2 ML VIAL IVP SCH ×2 (10:36→13:46)
[2021-01-10] MEDS: INSULIN ASPART 300 UNIT/3 ML PEN SUBQ SCH ×3 (11:39→20:57)
[2021-01-10] MEDS: CYCLOBENZAPRINE 10 MG TABLET PO PRN (14:30)
--- NOTE | 2021-01-10 15:49 | PHARMACY PROGRESS NOTE ---
- Best Possible Medication History Admit Date and Time: 01/09/21 1711 Processed by: Pharmacy Medication History completed: Yes Patient Interview: Completed Secondary Source(s): Written medication list, Spouse/Significant other (PATIENT ABLE TO CONFIRM HOME MEDICATIONS ) As the person ultimately responsible for medication therapy, providers are able to order a medication from an existing home medication list in [facility] via the "Reconcile Routine" prior to Confirmation of that medication by program support clerk. Such practice is discouraged except when the physician, in their clinical judgment, deems that a medical need exists for a medication without regard to previous use.
--- NOTE | 2021-01-10 16:21 | PROVIDER PROGRESS NOTE ---
Subjective - Prog Note Date Prog Note Date: 01/10/21 - Subjective Pt reports feeling: Improved Subjective: Patient reported he feels much better, he feel his energy come back, he reported he did not eat much until today, he ate most of his meal on today. he also report his breath is better. Current Medications - Current Medications Current Medications: Active Medications Acetaminophen (Acetaminophen 325 Mg Tablet) 650 mg PO Q4HR PRN PRN Reason: Pain 1 to 4 Cyclobenzaprine HCl (Cyclobenzaprine 10 Mg Tablet) 10 mg PO TID PRN PRN Reason: Spasms Last Admin: 01/10/21 14:30 Dose: 10 mg Documented by: Enoxaparin Sodium (Enoxaparin 40 Mg/0.4 Ml Syringe) 40 mg SUBQ DAILY [facility] Last Admin: 01/10/21 08:57 Dose: 40 mg Documented by: Ferrous Sulfate (Ferrous Sulfate 325 Mg Tablet) 325 mg PO DAILYWM [facility] Last Admin: 01/10/21 08:56 Dose: 325 mg Documented by: Furosemide (Furosemide 20 Mg/2 Ml Vial) 20 mg IVP BIDDIURETIC [facility] Last Admin: 01/10/21 13:46 Dose: 20 mg Documented by: Cefepime HCl 2 gm/ Sodium (Chloride) 100 mls @ 200 mls/hr IV Q8H [facility] Insulin Aspart (Insulin Aspart 300 Unit/3 Ml Pen) 2 - 10 unit SUBQ 0800,1200,1700,2100 [facility]; Protocol Last Admin: 01/10/21 11:39 Dose: 8 unit Documented by: Insulin Glargine (Insulin Glargine 300 Unit/3 Ml Pen) 20 unit SUBQ QPM [facility] Multivitamins/Minerals (Multivitamin W/Minerals Tablet) 1 tab PO DAILYWM [facility] Ondansetron HCl (Ondansetron 4 Mg/2 Ml Vial) 4 mg IVP Q6HR PRN PRN Reason: Nausea / Vomiting Oxycodone HCl (Oxycodone 5 Mg Tablet) 5 mg PO Q4HR PRN PRN Reason: Pain 5 to 7 Saccharomyces Boulardii (Saccharomyces Boulardii 250 Mg Capsule) 250 mg PO BIDWM [facility] Last Admin: 01/10/21 08:56 Dose: 250 mg Documented by: Sodium Chloride (Sodium Chloride Flush 0.9% 10 Ml Syringe) 10 ml IVP PRN PRN PRN Reason: NEEDED PER PROVIDER ORDERS Sodium Chloride (Sodium Chloride Flush 0.9% 10 Ml Syringe) 10 ml IVP 0100,0900,1700 [facility] Last Admin: 01/10/21 08:56 Dose: 10 ml Documented by: Tamsulosin HCl (Tamsulosin 0.4 Mg Capsule) 0.4 mg PO DAILY [facility] Last Admin: 01/10/21 08:56 Dose: 0.4 mg Documented by: Magnesium Oxide [Magnesium] 400 mg PO DAILY 12/03/20 dronabinoL [Marinol] 5 - 10 mg PO DAILY 01/08/21 Cyclobenzaprine [Flexeril] 10 mg PO TID PRN 01/09/21 Docusate Sodium 100Mg Capsule [Colace 100Mg Capsule] 100 mg PO QID 01/09/21 Enoxaparin [Lovenox] 40 mg pe SUBQ DAILY 01/09/21 Insulin Lispro [Humalog] 0 unit SUBQ .SS 01/09/21 Insulin NPH Human [NovoLIN N] 0 unit SUBQ QPM 01/09/21 Metoclopramide [Reglan] 10 mg PO Q6H PRN 01/09/21 Ondansetron HCl [Zofran] 4 mg PO QID 01/09/21 Promethazine [Phenergan] 25 mg PO QPM PRN 01/09/21 Tamsulosin HCl [Flomax] 0.4 mg PO DAILY 01/09/21 oxyCODONE [Roxicodone] 5 mg PO Q6H PRN 01/09/21 Silver Sulfadiazine Cream [Silvadene Cream] 1 appful TOP PRN PRN 01/10/21 Objective - Vital Signs/Intake & Output Vital Signs: Vital Signs x48h Temp Pulse Resp BP Pulse Ox 01/10/21 15:49 36.4 C L 107 H 20 132/58 H 95 01/10/21 14:00 36.2 C L 111 H 18 123/57 L 92 01/10/21 10:19 36.9 C 89 17 130/59 L 94 Intake & Output: Intake & Output 01/07/21 01/08/21 01/09/21 01/10/21 23:59 23:59 23:59 23:59 Intake Total 600 1120 Output Total 1100 Balance 600 20 - Objective General Appearance: positive: No acute distress, Alert. negative: Lethargic Eyes Bilateral: positive: Normal inspection, PERRL, No lid inflammation ENT: positive: ENT inspection nml, No signs of dehydration. negative: Purulent nasal drainage Neck: positive: Nml inspection, Trachea midline. negative: Thyromegaly, Tracheal deviation Respiratory: positive: Chest non-tender, No respiratory distress, Rhonchi. negative: Wheezes Cardiovascular: positive: Regular rate & rhythm, No murmur. negative: Tachycardia, Bradycardia, Systolic murmur, Diastolic murmur Peripheral Pulses: 2+ Radial (R), 2+ Radial (L) Abdomen: positive: Non-tender, Nml bowel sounds, No distention. negative: Tenderness, Guarding Back: positive: Nml inspection Skin: positive: Warm, Dry, Decubitus, Other (left foot with covered by dressing with connection of VAC) Extremities: positive: Non-tender. negative: Calf tenderness Neurologic/Psychiatric: positive: Oriented x3, Motor nml, Sensation nml, Mood/affect nml. negative: Weakness, Sensory loss, Facial droop, Slurred/abnml speech, Depressed mood/affect - Lab Results Fish Bones: 01/10/21 09:05 01/10/21 09:05 Other Labs: Lab Results x24hrs 01/10/21 01/10/21 01/10/21 Range/Units 11:28 09:05 09:05 WBC (4.8-10.8) x10^3/uL RBC (4.70-6.10) 10^6/uL Hgb (14.0-18.0) g/dL Hct (42.0-52.0) % MCV (80.0-94.0) fL MCH (27.0-31.0) pg MCHC (32.0-36.0) g/dL RDW (12.0-15.0) % Plt Count (130-450) 10^3/uL MPV (7.4-11.4) fL Reticulocyte % (Auto) (0.5-2.3) % Neut # (Auto) Lymph # (Auto) [place] # (Auto) Eos # (Auto) Baso # (Auto) Absolute Nucleated RBC Total Counted Band Neuts % (Manual) (0 - 10) % Abnorm Lymph % (Manual) % Metamyelocytes % ( - 0) % Myelocytes % ( - 0) % Nucleated RBC % Neutrophils # (Manual) (1.5-6.6) 10^3/uL Lymphocytes # (Manual) (1.5-3.5) 10^3/uL Monocytes # (Manual) (0.0-1.0) 10^3/uL Eosinophils # (Manual) (0-0.7) 10^3/uL Basophils # (Manual) (0-0.1) 10^3/uL Differential Comment Manual Slide Review WBC Morphology (NORMAL) Platelet Estimate (NORMAL) Platelet Morphology (NORMAL) RBC Morph Micro Appear (NORMAL) ESR (0-20) mm/Hr Absolute Retic (0.020-0.110) 10^6/uL Sodium (135-145) mmol/L Potassium (3.5-5.0) mmol/L Chloride (101-111) mmol/L Carbon Dioxide (21-32) mmol/L Anion Gap (6-13) BUN (6-20) mg/dL Creatinine (0.6-1.2) mg/dL Estimated GFR (MDRD) (>89) Glucose (70-100) mg/dL POC Whole Bld Glucose 281 H (70 - 100) mg/dL Estimat Average Glucose (70-100) mg/dL Hemoglobin A1c % (4.27-6.07) % Lactic Acid (0.5-2.2) mmol/L Calcium (8.5-10.3) mg/dL Iron (45-182) ug/dL TIBC (250-450) ug/dL % Saturation (20-50) % Transferrin (180-329) mg/dL Ferritin (23.9-336.2) ng/mL Total Bilirubin (0.2-1.0) mg/dL AST (10-42) IU/L ALT (10-60) IU/L Alkaline Phosphatase (42-121) IU/L Lactate Dehydrogenase (91-225) IU/L Troponin I High Sens (2.3-19.7) ng/L C-Reactive Protein (0-1.0) mg/dL B-Natriuretic Peptide 245 H (5-100) pg/mL Total Protein (6.7-8.2) g/dL Albumin (3.2-5.5) g/dL Globulin (2.1-4.2) g/dL Albumin/Globulin Ratio (1.0-2.2) Lipase (22-51) U/L Vitamin B12 (180-914) pg/mL TSH 2.90 (0.34-5.60) uIU/mL Nasal Adenovirus (PCR) Nasal B. parapertussis DNA (PCR) Nasal Coronavir 229E PCR Nasal Coronavir HKU1 PCR Nasal Coronavir NL63 PCR Nasal Coronavir OC43 PCR Nasal Enterovir/Rhinovir PCR Nasal Influenza B PCR Nasal Influenza A PCR Nasal Parainfluen 1 PCR Nasal Parainfluen 2 PCR Nasal Parainfluen 3 PCR Nasal Parainfluen 4 PCR Nasal RSV (PCR) Nasal B.pertussis DNA PCR Nasal C.pneumoniae (PCR) Bakari Human Metapneumo PCR Nasal M.pneumoniae (PCR) Nasal SARS-CoV-2 (PCR) 01/10/21 01/10/21 01/10/21 Range/Units 09:05 09:05 07:52 WBC 11.1 H (4.8-10.8) x10^3/uL RBC 3.76 L (4.70-6.10) 10^6/uL Hgb 10.7 L (14.0-18.0) g/dL Hct 33.0 L (42.0-52.0) % MCV 87.8 (80.0-94.0) fL MCH 28.5 (27.0-31.0) pg MCHC 32.4 (32.0-36.0) g/dL RDW 13.7 (12.0-15.0) % Plt Count 134 (130-450) 10^3/uL MPV 9.2 (7.4-11.4) fL Reticulocyte % (Auto) (0.5-2.3) % Neut # (Auto) 8.1 H Lymph # (Auto) 1.1 L [place] # (Auto) 0.7 Eos # (Auto) 0.0 Baso # (Auto) 0.1 Absolute Nucleated RBC 0.09 Total Counted Band Neuts % (Manual) (0 - 10) % Abnorm Lymph % (Manual) % Metamyelocytes % ( - 0) % Myelocytes % ( - 0) % Nucleated RBC % 0.8 Neutrophils # (Manual) (1.5-6.6) 10^3/uL Lymphocytes # (Manual) (1.5-3.5) 10^3/uL Monocytes # (Manual) (0.0-1.0) 10^3/uL Eosinophils # (Manual) (0-0.7) 10^3/uL Basophils # (Manual) (0-0.1) 10^3/uL Differential Comment Manual Slide Review Indicated WBC Morphology (NORMAL) Platelet Estimate (NORMAL) Platelet Morphology (NORMAL) RBC Morph Micro Appear 2+ ANISOCYTOSIS (NORMAL) ESR (0-20) mm/Hr Absolute Retic (0.020-0.110) 10^6/uL Sodium 130 L (135-145) mmol/L Potassium 4.7 (3.5-5.0) mmol/L Chloride 92 L (101-111) mmol/L Carbon Dioxide 26 (21-32) mmol/L Anion Gap 12.0 (6-13) BUN 25 H (6-20) mg/dL Creatinine 1.1 (0.6-1.2) mg/dL Estimated GFR (MDRD) 67 L (>89) Glucose 314 H (70-100) mg/dL POC Whole Bld Glucose 275 H (70 - 100) mg/dL Estimat Average Glucose (70-100) mg/dL Hemoglobin A1c % (4.27-6.07) % Lactic Acid (0.5-2.2) mmol/L Calcium 8.5 (8.5-10.3) mg/dL Iron (45-182) ug/dL TIBC (250-450) ug/dL % Saturation (20-50) % Transferrin (180-329) mg/dL Ferritin (23.9-336.2) ng/mL Total Bilirubin (0.2-1.0) mg/dL AST (10-42) IU/L ALT (10-60) IU/L Alkaline Phosphatase (42-121) IU/L Lactate Dehydrogenase (91-225) IU/L Troponin I High Sens (2.3-19.7) ng/L C-Reactive Protein 19.0 H (0-1.0) mg/dL B-Natriuretic Peptide (5-100) pg/mL Total Protein (6.7-8.2) g/dL Albumin (3.2-5.5) g/dL Globulin (2.1-4.2) g/dL Albumin/Globulin Ratio (1.0-2.2) Lipase (22-51) U/L Vitamin B12 (180-914) pg/mL TSH (0.34-5.60) uIU/mL Nasal Adenovirus (PCR) Nasal B. parapertussis DNA (PCR) Nasal Coronavir 229E PCR Nasal Coronavir HKU1 PCR Nasal Coronavir NL63 PCR Nasal Coronavir OC43 PCR Nasal Enterovir/Rhinovir PCR Nasal Influenza B PCR Nasal Influenza A PCR Nasal Parainfluen 1 PCR Nasal Parainfluen 2 PCR Nasal Parainfluen 3 PCR Nasal Parainfluen 4 PCR Nasal RSV (PCR) Nasal B.pertussis DNA PCR Nasal C.pneumoniae (PCR) Bakari Human Metapneumo PCR Nasal M.pneumoniae (PCR) Nasal SARS-CoV-2 (PCR) 01/09/21 01/09/21 01/09/21 Range/Units 20:19 17:10 17:10 WBC (4.8-10.8) x10^3/uL RBC (4.70-6.10) 10^6/uL Hgb (14.0-18.0) g/dL Hct (42.0-52.0) % MCV (80.0-94.0) fL MCH (27.0-31.0) pg MCHC (32.0-36.0) g/dL RDW (12.0-15.0) % Plt Count (130-450) 10^3/uL MPV (7.4-11.4) fL Reticulocyte % (Auto) (0.5-2.3) % Neut # (Auto) Lymph # (Auto) [place] # (Auto) Eos # (Auto) Baso # (Auto) Absolute Nucleated RBC Total Counted Band Neuts % (Manual) (0 - 10) % Abnorm Lymph % (Manual) % Metamyelocytes % ( - 0) % Myelocytes % ( - 0) % Nucleated RBC % Neutrophils # (Manual) (1.5-6.6) 10^3/uL Lymphocytes # (Manual) (1.5-3.5) 10^3/uL Monocytes # (Manual) (0.0-1.0) 10^3/uL Eosinophils # (Manual) (0-0.7) 10^3/uL Basophils # (Manual) (0-0.1) 10^3/uL Differential Comment Manual Slide Review WBC Morphology (NORMAL) Platelet Estimate (NORMAL) Platelet Morphology (NORMAL) RBC Morph Micro Appear (NORMAL) ESR 74 H (0-20) mm/Hr Absolute Retic (0.020-0.110) 10^6/uL Sodium (135-145) mmol/L Potassium (3.5-5.0) mmol/L Chloride (101-111) mmol/L Carbon Dioxide (21-32) mmol/L Anion Gap (6-13) BUN (6-20) mg/dL Creatinine (0.6-1.2) mg/dL Estimated GFR (MDRD) (>89) Glucose (70-100) mg/dL POC Whole Bld Glucose 205 H (70 - 100) mg/dL Estimat Average Glucose (70-100) mg/dL Hemoglobin A1c % (4.27-6.07) % Lactic Acid (0.5-2.2) mmol/L Calcium (8.5-10.3) mg/dL Iron (45-182) ug/dL TIBC (250-450) ug/dL % Saturation (20-50) % Transferrin (180-329) mg/dL Ferritin (23.9-336.2) ng/mL Total Bilirubin (0.2-1.0) mg/dL AST (10-42) IU/L ALT (10-60) IU/L Alkaline Phosphatase (42-121) IU/L Lactate Dehydrogenase 1201 H (91-225) IU/L Troponin I High Sens (2.3-19.7) ng/L C-Reactive Protein (0-1.0) mg/dL B-Natriuretic Peptide (5-100) pg/mL Total Protein (6.7-8.2) g/dL Albumin (3.2-5.5) g/dL Globulin (2.1-4.2) g/dL Albumin/Globulin Ratio (1.0-2.2) Lipase (22-51) U/L Vitamin B12 (180-914) pg/mL TSH (0.34-5.60) uIU/mL Nasal Adenovirus (PCR) Nasal B. parapertussis DNA (PCR) Nasal Coronavir 229E PCR Nasal Coronavir HKU1 PCR Nasal Coronavir NL63 PCR Nasal Coronavir OC43 PCR Nasal Enterovir/Rhinovir PCR Nasal Influenza B PCR Nasal Influenza A PCR Nasal Parainfluen 1 PCR Nasal Parainfluen 2 PCR Nasal Parainfluen 3 PCR Nasal Parainfluen 4 PCR Nasal RSV (PCR) Nasal B.pertussis DNA PCR Nasal C.pneumoniae (PCR) Bakari Human Metapneumo PCR Nasal M.pneumoniae (PCR) Nasal SARS-CoV-2 (PCR) 01/09/21 01/09/21 01/09/21 Range/Units 17:10 17:10 17:10 WBC (4.8-10.8) x10^3/uL RBC 3.16 L (4.70-6.10) 10^6/uL Hgb (14.0-18.0) g/dL Hct (42.0-52.0) % MCV (80.0-94.0) fL MCH (27.0-31.0) pg MCHC (32.0-36.0) g/dL RDW (12.0-15.0) % Plt Count (130-450) 10^3/uL MPV (7.4-11.4) fL Reticulocyte % (Auto) 2.37 H (0.5-2.3) % Neut # (Auto) Lymph # (Auto) [place] # (Auto) Eos # (Auto) Baso # (Auto) Absolute Nucleated RBC Total Counted Band Neuts % (Manual) (0 - 10) % Abnorm Lymph % (Manual) % Metamyelocytes % ( - 0) % Myelocytes % ( - 0) % Nucleated RBC % Neutrophils # (Manual) (1.5-6.6) 10^3/uL Lymphocytes # (Manual) (1.5-3.5) 10^3/uL Monocytes # (Manual) (0.0-1.0) 10^3/uL Eosinophils # (Manual) (0-0.7) 10^3/uL Basophils # (Manual) (0-0.1) 10^3/uL Differential Comment Manual Slide Review WBC Morphology (NORMAL) Platelet Estimate (NORMAL) Platelet Morphology (NORMAL) RBC Morph Micro Appear (NORMAL) ESR (0-20) mm/Hr Absolute Retic 0.075 (0.020-0.110) 10^6/uL Sodium (135-145) mmol/L Potassium (3.5-5.0) mmol/L Chloride (101-111) mmol/L Carbon Dioxide (21-32) mmol/L Anion Gap (6-13) BUN (6-20) mg/dL Creatinine (0.6-1.2) mg/dL Estimated GFR (MDRD) (>89) Glucose (70-100) mg/dL POC Whole Bld Glucose (70 - 100) mg/dL Estimat Average Glucose (70-100) mg/dL Hemoglobin A1c % (4.27-6.07) % Lactic Acid (0.5-2.2) mmol/L Calcium (8.5-10.3) mg/dL Iron 43 L (45-182) ug/dL TIBC 158 L (250-450) ug/dL % Saturation 27 (20-50) % Transferrin 113 L (180-329) mg/dL Ferritin 2283.0 H (23.9-336.2) ng/mL Total Bilirubin (0.2-1.0) mg/dL AST (10-42) IU/L ALT (10-60) IU/L Alkaline Phosphatase (42-121) IU/L Lactate Dehydrogenase (91-225) IU/L Troponin I High Sens (2.3-19.7) ng/L C-Reactive Protein (0-1.0) mg/dL B-Natriuretic Peptide (5-100) pg/mL Total Protein (6.7-8.2) g/dL Albumin (3.2-5.5) g/dL Globulin (2.1-4.2) g/dL Albumin/Globulin Ratio (1.0-2.2) Lipase (22-51) U/L Vitamin B12 825 (180-914) pg/mL TSH (0.34-5.60) uIU/mL Nasal Adenovirus (PCR) Nasal B. parapertussis DNA (PCR) Nasal Coronavir 229E PCR Nasal Coronavir HKU1 PCR Nasal Coronavir NL63 PCR Nasal Coronavir OC43 PCR Nasal Enterovir/Rhinovir PCR Nasal Influenza B PCR Nasal Influenza A PCR Nasal Parainfluen 1 PCR Nasal Parainfluen 2 PCR Nasal Parainfluen 3 PCR Nasal Parainfluen 4 PCR Nasal RSV (PCR) Nasal B.pertussis DNA PCR Nasal C.pneumoniae (PCR) Bakari Human Metapneumo PCR Nasal M.pneumoniae (PCR) Nasal SARS-CoV-2 (PCR) 01/09/21 01/09/21 01/09/21 Range/Units 17:10 17:10 17:10 WBC (4.8-10.8) x10^3/uL RBC (4.70-6.10) 10^6/uL Hgb (14.0-18.0) g/dL Hct (42.0-52.0) % MCV (80.0-94.0) fL MCH (27.0-31.0) pg MCHC (32.0-36.0) g/dL RDW (12.0-15.0) % Plt Count (130-450) 10^3/uL MPV (7.4-11.4) fL Reticulocyte % (Auto) (0.5-2.3) % Neut # (Auto) Lymph # (Auto) [place] # (Auto) Eos # (Auto) Baso # (Auto) Absolute Nucleated RBC Total Counted Band Neuts % (Manual) (0 - 10) % Abnorm Lymph % (Manual) % Metamyelocytes % ( - 0) % Myelocytes % ( - 0) % Nucleated RBC % Neutrophils # (Manual) (1.5-6.6) 10^3/uL Lymphocytes # (Manual) (1.5-3.5) 10^3/uL Monocytes # (Manual) (0.0-1.0) 10^3/uL Eosinophils # (Manual) (0-0.7) 10^3/uL Basophils # (Manual) (0-0.1) 10^3/uL Differential Comment Manual Slide Review WBC Morphology (NORMAL) Platelet Estimate (NORMAL) Platelet Morphology (NORMAL) RBC Morph Micro Appear (NORMAL) ESR (0-20) mm/Hr Absolute Retic (0.020-0.110) 10^6/uL Sodium (135-145) mmol/L Potassium (3.5-5.0) mmol/L Chloride (101-111) mmol/L Carbon Dioxide (21-32) mmol/L Anion Gap (6-13) BUN (6-20) mg/dL Creatinine (0.6-1.2) mg/dL Estimated GFR (MDRD) (>89) Glucose (70-100) mg/dL POC Whole Bld Glucose (70 - 100) mg/dL Estimat Average Glucose 258 H (70-100) mg/dL Hemoglobin A1c % 10.6 H (4.27-6.07) % Lactic Acid (0.5-2.2) mmol/L Calcium (8.5-10.3) mg/dL Iron (45-182) ug/dL TIBC (250-450) ug/dL % Saturation (20-50) % Transferrin (180-329) mg/dL Ferritin (23.9-336.2) ng/mL Total Bilirubin (0.2-1.0) mg/dL AST (10-42) IU/L ALT (10-60) IU/L Alkaline Phosphatase (42-121) IU/L Lactate Dehydrogenase (91-225) IU/L Troponin I High Sens (2.3-19.7) ng/L C-Reactive Protein 19.8 H (0-1.0) mg/dL B-Natriuretic Peptide (5-100) pg/mL Total Protein (6.7-8.2) g/dL Albumin (3.2-5.5) g/dL Globulin (2.1-4.2) g/dL Albumin/Globulin Ratio (1.0-2.2) Lipase (22-51) U/L Vitamin B12 (180-914) pg/mL TSH (0.34-5.60) uIU/mL Nasal Adenovirus (PCR) NOT DETECTED Nasal B. parapertussis DNA (PCR) NOT DETECTED Nasal Coronavir 229E PCR NOT DETECTED Nasal Coronavir HKU1 PCR NOT DETECTED Nasal Coronavir NL63 PCR NOT DETECTED Nasal Coronavir OC43 PCR NOT DETECTED Nasal Enterovir/Rhinovir PCR NOT DETECTED Nasal Influenza B PCR NOT DETECTED Nasal Influenza A PCR NOT DETECTED Nasal Parainfluen 1 PCR NOT DETECTED Nasal Parainfluen 2 PCR NOT DETECTED Nasal Parainfluen 3 PCR NOT DETECTED Nasal Parainfluen 4 PCR NOT DETECTED Nasal RSV (PCR) NOT DETECTED Nasal B.pertussis DNA PCR NOT DETECTED Nasal C.pneumoniae (PCR) NOT DETECTED Bakari Human Metapneumo PCR NOT DETECTED Nasal M.pneumoniae (PCR) NOT DETECTED Nasal SARS-CoV-2 (PCR) NOT DETECTED 01/09/21 01/09/21 01/09/21 Range/Units 17:10 17:10 17:10 WBC (4.8-10.8) x10^3/uL RBC (4.70-6.10) 10^6/uL Hgb (14.0-18.0) g/dL Hct (42.0-52.0) % MCV (80.0-94.0) fL MCH (27.0-31.0) pg MCHC (32.0-36.0) g/dL RDW (12.0-15.0) % Plt Count (130-450) 10^3/uL MPV (7.4-11.4) fL Reticulocyte % (Auto) (0.5-2.3) % Neut # (Auto) Lymph # (Auto) [place] # (Auto) Eos # (Auto) Baso # (Auto) Absolute Nucleated RBC Total Counted Band Neuts % (Manual) (0 - 10) % Abnorm Lymph % (Manual) % Metamyelocytes % ( - 0) % Myelocytes % ( - 0) % Nucleated RBC % Neutrophils # (Manual) (1.5-6.6) 10^3/uL Lymphocytes # (Manual) (1.5-3.5) 10^3/uL Monocytes # (Manual) (0.0-1.0) 10^3/uL Eosinophils # (Manual) (0-0.7) 10^3/uL Basophils # (Manual) (0-0.1) 10^3/uL Differential Comment Manual Slide Review WBC Morphology (NORMAL) Platelet Estimate (NORMAL) Platelet Morphology (NORMAL) RBC Morph Micro Appear (NORMAL) ESR (0-20) mm/Hr Absolute Retic (0.020-0.110) 10^6/uL Sodium 130 L (135-145) mmol/L Potassium 4.1 (3.5-5.0) mmol/L Chloride 92 L (101-111) mmol/L Carbon Dioxide 28 (21-32) mmol/L Anion Gap 10.0 (6-13) BUN 22 H (6-20) mg/dL Creatinine 1.1 (0.6-1.2) mg/dL Estimated GFR (MDRD) 67 L (>89) Glucose 159 H (70-100) mg/dL POC Whole Bld Glucose (70 - 100) mg/dL Estimat Average Glucose (70-100) mg/dL Hemoglobin A1c % (4.27-6.07) % Lactic Acid 1.5 (0.5-2.2) mmol/L Calcium 8.6 (8.5-10.3) mg/dL Iron (45-182) ug/dL TIBC (250-450) ug/dL % Saturation (20-50) % Transferrin (180-329) mg/dL Ferritin (23.9-336.2) ng/mL Total Bilirubin 0.8 (0.2-1.0) mg/dL AST 19 (10-42) IU/L ALT 18 (10-60) IU/L Alkaline Phosphatase 244 H (42-121) IU/L Lactate Dehydrogenase (91-225) IU/L Troponin I High Sens 24.6 H* (2.3-19.7) ng/L C-Reactive Protein (0-1.0) mg/dL B-Natriuretic Peptide (5-100) pg/mL Total Protein 5.6 L (6.7-8.2) g/dL Albumin 2.3 L (3.2-5.5) g/dL Globulin 3.3 (2.1-4.2) g/dL Albumin/Globulin Ratio 0.7 L (1.0-2.2) Lipase 14 L (22-51) U/L Vitamin B12 (180-914) pg/mL TSH (0.34-5.60) uIU/mL Nasal Adenovirus (PCR) Nasal B. parapertussis DNA (PCR) Nasal Coronavir 229E PCR Nasal Coronavir HKU1 PCR Nasal Coronavir NL63 PCR Nasal Coronavir OC43 PCR Nasal Enterovir/Rhinovir PCR Nasal Influenza B PCR Nasal Influenza A PCR Nasal Parainfluen 1 PCR Nasal Parainfluen 2 PCR Nasal Parainfluen 3 PCR Nasal Parainfluen 4 PCR Nasal RSV (PCR) Nasal B.pertussis DNA PCR Nasal C.pneumoniae (PCR) Bakari Human Metapneumo PCR Nasal M.pneumoniae (PCR) Nasal SARS-CoV-2 (PCR) 01/09/21 01/09/21 Range/Units 17:10 13:52 WBC 10.0 (4.8-10.8) x10^3/uL RBC 3.17 L (4.70-6.10) 10^6/uL Hgb 9.2 L (14.0-18.0) g/dL Hct 27.5 L (42.0-52.0) % MCV 86.8 (80.0-94.0) fL MCH 29.0 (27.0-31.0) pg MCHC 33.5 (32.0-36.0) g/dL RDW 13.5 (12.0-15.0) % Plt Count 130 (130-450) 10^3/uL MPV 9.3 (7.4-11.4) fL Reticulocyte % (Auto) (0.5-2.3) % Neut # (Auto) Not Reportable Lymph # (Auto) Not Reportable [place] # (Auto) Not Reportable Eos # (Auto) Not Reportable Baso # (Auto) Not Reportable Absolute Nucleated RBC Not Reportable Total Counted 100 Band Neuts % (Manual) 5 (0 - 10) % Abnorm Lymph % (Manual) 0 % Metamyelocytes % 3 H ( - 0) % Myelocytes % 1 H ( - 0) % Nucleated RBC % Not Reportable Neutrophils # (Manual) 6.8 H (1.5-6.6) 10^3/uL Lymphocytes # (Manual) 1.6 (1.5-3.5) 10^3/uL Monocytes # (Manual) 0.9 (0.0-1.0) 10^3/uL Eosinophils # (Manual) 0.1 (0-0.7) 10^3/uL Basophils # (Manual) 0.2 H (0-0.1) 10^3/uL Differential Comment MANUAL DIFFERENTIAL Manual Slide Review Indicated WBC Morphology NORMAL APPEARANCE (NORMAL) Platelet Estimate NORMAL (130-450,000) (NORMAL) Platelet Morphology NORMAL APPEARANCE (NORMAL) RBC Morph Micro Appear 1+ POLYCHROMASIA (NORMAL) ESR (0-20) mm/Hr Absolute Retic (0.020-0.110) 10^6/uL Sodium (135-145) mmol/L Potassium (3.5-5.0) mmol/L Chloride (101-111) mmol/L Carbon Dioxide (21-32) mmol/L Anion Gap (6-13) BUN (6-20) mg/dL Creatinine (0.6-1.2) mg/dL Estimated GFR (MDRD) (>89) Glucose (70-100) mg/dL POC Whole Bld Glucose (70 - 100) mg/dL Estimat Average Glucose (70-100) mg/dL Hemoglobin A1c % (4.27-6.07) % Lactic Acid (0.5-2.2) mmol/L Calcium (8.5-10.3) mg/dL Iron (45-182) ug/dL TIBC (250-450) ug/dL % Saturation (20-50) % Transferrin (180-329) mg/dL Ferritin (23.9-336.2) ng/mL Total Bilirubin (0.2-1.0) mg/dL AST (10-42) IU/L ALT (10-60) IU/L Alkaline Phosphatase (42-121) IU/L Lactate Dehydrogenase (91-225) IU/L Troponin I High Sens (2.3-19.7) ng/L C-Reactive Protein (0-1.0) mg/dL B-Natriuretic Peptide 199 H (5-100) pg/mL Total Protein (6.7-8.2) g/dL Albumin (3.2-5.5) g/dL Globulin (2.1-4.2) g/dL Albumin/Globulin Ratio (1.0-2.2) Lipase (22-51) U/L Vitamin B12 (180-914) pg/mL TSH (0.34-5.60) uIU/mL Nasal Adenovirus (PCR) Nasal B. parapertussis DNA (PCR) Nasal Coronavir 229E PCR Nasal Coronavir HKU1 PCR Nasal Coronavir NL63 PCR Nasal Coronavir OC43 PCR Nasal Enterovir/Rhinovir PCR Nasal Influenza B PCR Nasal Influenza A PCR Nasal Parainfluen 1 PCR Nasal Parainfluen 2 PCR Nasal Parainfluen 3 PCR Nasal Parainfluen 4 PCR Nasal RSV (PCR) Nasal B.pertussis DNA PCR Nasal C.pneumoniae (PCR) Bakari Human Metapneumo PCR Nasal M.pneumoniae (PCR) Nasal SARS-CoV-2 (PCR) ABX Reporting Has patient been on IV antibiotics over the past 48 hours?: Yes Sepsis Event Note (H) - Evaluation Current Stage of Sepsis: Ruled out Assessment/Plan - Problem List (1) Respiratory failure with hypoxia Impression: pt feel his breath is better. pt had 95% sats on 3 liter of O2. CTA reveals small area of consolidation, and bilateral small pleural effusion with moderate to severe pulmonary edema. pt is treated with antibiotics for pneumonia and Lasix for pulmonary edema. Pt Develop hypoxia with shortness breathing at [facility] clinic. Patient had 80% sats on room air, with tachycardia. Patient has normal range WBC, patient has no fever in ER. Per the patient report he had 100 degree temperature at home with sweating. Chest x-ray show mild pulmonary congestion, no local infiltrate. Patient had large ulcer/wound at left plantar feet with VAC, but no drainage yet. Patient has history of melanoma in immunotherapy which started about 2 weeks ago with Keytruda. ER already started with antibiotics, Blood culture is pending. Patient report he had first dosage of COVID-19 vaccine, COVID-19 test is pending. We will continue antibiotics, predinsone for his possible pneumonitis because of recently Keytruda, check CTA to r/o PE Because of her recently surgery, melanoma hx. Supplement oxygen as needed (2)pneumonia pt had slight elevated WBC, CTA reveals small area of consolidation, pt is on chemotherapy and immune compromised status. we will continue antibiotics, followup with blood culture (3)pulmonary edema pt's CTA reveals bilateral small pleural effusion with moderate to severe pulmonary edema. 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 pt had surgery to remove Melanoma lesion done by [facility] recently, and on immune therapy by Dr. Lee, pt may followup with his oncologist closely as out-pt (5) Ulcer of left foot Conclusion/Plan: pt had wound ulcer from resection of acral lentiginous melanoma and uncontrolled diabetes wound ulcer as well. pt had wound VAC, continue VAC wound care and followup with [facility] wound care (6) Diabetes Conclusion/Plan: A1C is 10.6, poor controlled. increase lantus, and slide scale (7) BPH (benign prostatic hyperplasia) Conclusion/Plan: we will resume home Flomax (8) Elevated troponin Conclusion/Plan: pt had slight elevated troponin 25, repeat troponin at 24. pt denies chest pain. it is likely from demand ischemia. will order EKG (9) hyponatremia Conclusion/Plan: sodium 130,pulmonary congestion but pt has no lower extremities edema. ECHO is pending, it is likely hypervolumia with hyponatremia, start with Lasix, lab monitor
[2021-01-10] MEDS: MULTIVITAMIN W/MINERALS TABLET PO SCH (16:48)
[2021-01-10] MEDS: oxyCODONE 5 MG TABLET PO PRN (16:48)
[2021-01-10] MEDS: CEFEPIME 2 GM in SODIUM CHLORIDE 0.9% MINIBAG 100 ML IV SCH (16:54)
[2021-01-10] MEDS: INSULIN GLARGINE 300 UNIT/3 ML PEN SUBQ SCH (20:58)
[2021-01-11] MEDS: CEFEPIME 2 GM in SODIUM CHLORIDE 0.9% MINIBAG 100 ML IV SCH ×3 (00:38→16:50)
[2021-01-11] MEDS: SODIUM CHLORIDE FLUSH 0.9% 10 ML SYRINGE IVP SCH ×3 (00:38→16:51)
[2021-01-11] MEDS: FUROSEMIDE 20 MG/2 ML VIAL IVP SCH ×2 (04:59→13:41)
[2021-01-11 05:17] LABS: BASOPHILS % (AUTO) 0.5 %; EOSINOPHILS % (AUTO) 0.6 %; HCT - HEMATOCRIT 26.2 % (42.0-52.0); HGB - HEMOGLOBIN 8.6 g/dL (14.0-18.0); LYMPHOCYTES % (AUTO) 13.9 %; MEAN CORPUSCULAR HGB CONC 32.8 g/dL (32.0-36.0); MEAN CORPUSCULAR VOLUME 88.2 fL (80.0-94.0); MEAN PLATELET VOLUME 9.6 fL (7.4-11.4); MONOCYTES % (AUTO) 7.7 %; NEUTROPHILS % (AUTO) 69.2 %; PLT - PLATELET COUNT 113 10^3/uL (130-450); RED BLOOD COUNT 2.97 10^6/uL (4.70-6.10); RED CELL DISTRIBUTION WIDTH 13.6 % (12.0-15.0); WHITE BLOOD COUNT 8.4 x10^3/uL (4.8-10.8)
[2021-01-11 05:19] LABS: ABNORMAL LYMPHS % (MANUAL) 0 %; BAND NEUTROPHILS % (MANUAL) 0 %
[2021-01-11 05:37] LABS: CALCIUM 8.2 mg/dL (8.5-10.3); CREATININE 1.1 mg/dL (0.6-1.2); CRP - C-REACTIVE PROTEIN 9.9 mg/dL (0-1.0)
[2021-01-11 05:38] LABS: EOSINOPHILS # (MANUAL) 0.1 10^3/uL (0-0.7); LYMPHOCYTES % (MANUAL) 12 %; MONOCYTES # (MANUAL) 0.7 10^3/uL (0.0-1.0); NEUTROPHILS # (MANUAL) 6.6 10^3/uL (1.5-6.6)
[2021-01-11 05:39] LABS: DIFFERENTIAL COMMENT MANUAL DIFFERENTIAL; PLATELET ESTIMATE, MANUAL DECREASED (<130,000) (NORMAL); PLATELET MORPHOLOGY NORMAL APPEARANCE (NORMAL); WBC MORPHOLOGY (MULTIPLE) NORMAL APPEARANCE (NORMAL)
[2021-01-11] MEDS: FERROUS SULFATE 325 MG TABLET PO SCH (08:03)
[2021-01-11] MEDS: MULTIVITAMIN W/MINERALS TABLET PO SCH (08:03)
[2021-01-11] MEDS: SACCHAROMYCES BOULARDII 250 MG CAPSULE PO SCH ×2 (08:03→16:50)
[2021-01-11] MEDS: TAMSULOSIN 0.4 MG CAPSULE PO SCH (08:03)
[2021-01-11] MEDS: INSULIN ASPART 300 UNIT/3 ML PEN SUBQ SCH ×4 (08:04→21:53)
[2021-01-11] MEDS: ENOXAPARIN 40 MG/0.4 ML SYRINGE SUBQ SCH (08:11)
--- NOTE | 2021-01-11 12:15 | PROVIDER PROGRESS NOTE ---
Subjective - Prog Note Date Prog Note Date: 01/11/21 Prog Note Time: 12:21 - Subjective Pt reports feeling: Improved Subjective: He is walking back to the bed when I walk in the room. He is comfortable without any respiratory distress. He gets back in bed and asked me to please discuss his case with his as well. As such during my exam and encounter he puts his on the phone. His main complaint right now is fatigue. But he is feeling better. His stomach feels more upset than yesterday. He says it is not painful. Just more nauseated. Denies fever, chills. No new cough. Current Medications - Current Medications Current Medications: Active Medications Acetaminophen (Acetaminophen 325 Mg Tablet) 650 mg PO Q4HR PRN PRN Reason: Pain 1 to 4 Cyclobenzaprine HCl (Cyclobenzaprine 10 Mg Tablet) 10 mg PO TID PRN PRN Reason: Spasms Last Admin: 01/10/21 14:30 Dose: 10 mg Documented by: Enoxaparin Sodium (Enoxaparin 40 Mg/0.4 Ml Syringe) 40 mg SUBQ DAILY [facility] Last Admin: 01/11/21 08:11 Dose: 40 mg Documented by: Ferrous Sulfate (Ferrous Sulfate 325 Mg Tablet) 325 mg PO DAILYWM [facility] Last Admin: 01/11/21 08:03 Dose: 325 mg Documented by: Furosemide (Furosemide 20 Mg/2 Ml Vial) 20 mg IVP BIDDIURETIC [facility] Last Admin: 01/11/21 04:59 Dose: 20 mg Documented by: Cefepime HCl 2 gm/ Sodium (Chloride) 100 mls @ 200 mls/hr IV Q8H [facility] Last Infusion: 01/11/21 09:11 Dose: Infused Documented by: Insulin Aspart (Insulin Aspart 300 Unit/3 Ml Pen) 2 - 10 unit SUBQ 0800,1200,1700,2100 [facility]; Protocol Last Admin: 01/11/21 11:59 Dose: 8 unit Documented by: Insulin Glargine (Insulin Glargine 300 Unit/3 Ml Pen) 20 unit SUBQ QPM [facility] Last Admin: 01/10/21 20:58 Dose: 20 unit Documented by: Multivitamins/Minerals (Multivitamin W/Minerals Tablet) 1 tab PO DAILYWM [facility] Last Admin: 01/11/21 08:03 Dose: 1 tab Documented by: Ondansetron HCl (Ondansetron 4 Mg/2 Ml Vial) 4 mg IVP Q6HR PRN PRN Reason: Nausea / Vomiting Oxycodone HCl (Oxycodone 5 Mg Tablet) 5 mg PO Q4HR PRN PRN Reason: Pain 5 to 7 Last Admin: 01/10/21 16:48 Dose: 5 mg Documented by: Saccharomyces Boulardii (Saccharomyces Boulardii 250 Mg Capsule) 250 mg PO BIDWM [facility] Last Admin: 01/11/21 08:03 Dose: 250 mg Documented by: Sodium Chloride (Sodium Chloride Flush 0.9% 10 Ml Syringe) 10 ml IVP PRN PRN PRN Reason: NEEDED PER PROVIDER ORDERS Sodium Chloride (Sodium Chloride Flush 0.9% 10 Ml Syringe) 10 ml IVP 010 0,0900,1700 [facility] Last Admin: 01/11/21 08:12 Dose: 10 ml Documented by: Tamsulosin HCl (Tamsulosin 0.4 Mg Capsule) 0.4 mg PO DAILY [facility] Last Admin: 01/11/21 08:03 Dose: 0.4 mg Documented by: Magnesium Oxide [Magnesium] 400 mg PO DAILY 12/03/20 dronabinoL [Marinol] 5 - 10 mg PO DAILY 01/08/21 Cyclobenzaprine [Flexeril] 10 mg PO TID PRN 01/09/21 Docusate Sodium 100Mg Capsule [Colace 100Mg Capsule] 100 mg PO QID 01/09/21 Enoxaparin [Lovenox] 40 mg pe SUBQ DAILY 01/09/21 Insulin Lispro [Humalog] 0 unit SUBQ .SS 01/09/21 Insulin NPH Human [NovoLIN N] 0 unit SUBQ QPM 01/09/21 Metoclopramide [Reglan] 10 mg PO Q6H PRN 01/09/21 Ondansetron HCl [Zofran] 4 mg PO QID 01/09/21 Promethazine [Phenergan] 25 mg PO QPM PRN 01/09/21 Tamsulosin HCl [Flomax] 0.4 mg PO DAILY 01/09/21 oxyCODONE [Roxicodone] 5 mg PO Q6H PRN 01/09/21 Silver Sulfadiazine Cream [Silvadene Cream] 1 appful TOP PRN PRN 01/10/21 Objective - Vital Signs/Intake & Output Reviewed Vital Signs: Yes Vital Signs: Vital Signs x48h Temp Pulse Resp BP Pulse Ox 01/11/21 12:01 36.6 C 93 16 127/57 L 94 01/11/21 09:17 20 94 01/11/21 08:21 36.8 C 96 20 133/63 H 92 01/11/21 06:00 36.7 C 97 18 122/62 93 Intake & Output: Intake & Output 01/08/21 01/09/21 01/10/21 01/11/21 23:59 23:59 23:59 23:59 Intake Total 600 1370 680 Output Total 1375 1625 Balance 048 -0 -698 - Objective General Appearance: positive: No acute distress, Alert, Other (Pale, 61 inches, 92.9 kg. He is walking in room, able to get back in bed without any assist, ataxia, weakness. Eating 75% of food.) Eyes Bilateral: positive: PERRL, EOMI ENT: positive: No signs of dehydration Neck: positive: No JVD Respiratory: positive: No respiratory distress, Rales. negative: Wheezes, Rhonchi Cardiovascular: positive: Regular rate & rhythm, Systolic murmur. negative: Gallop/S4, Friction rub Abdomen: positive: Non-tender, No organomegaly, Nml bowel sounds, No distention - Lab Results Fish Bones: 01/11/21 05:00 01/11/21 05:00 Other Labs: Lab Results x24hrs 01/11/21 01/11/21 01/11/21 Range/Units 11:43 07:32 05:00 WBC (4.8-10.8) x10^3/uL RBC (4.70-6.10) 10^6/uL Hgb (14.0-18.0) g/dL Hct (42.0-52.0) % MCV (80.0-94.0) fL MCH (27.0-31.0) pg MCHC (32.0-36.0) g/dL RDW (12.0-15.0) % Plt Count (130-450) 10^3/uL MPV (7.4-11.4) fL Neut # (Auto) Lymph # (Auto) Newton # (Auto) Eos # (Auto) Baso # (Auto) Absolute Nucleated RBC Total Counted Band Neuts % (Manual) (0 - 10) % Abnorm Lymph % (Manual) % Nucleated RBC % Neutrophils # (Manual) (1.5-6.6) 10^3/uL Lymphocytes # (Manual) (1.5-3.5) 10^3/uL Monocytes # (Manual) (0.0-1.0) 10^3/uL Eosinophils # (Manual) (0-0.7) 10^3/uL Basophils # (Manual) (0-0.1) 10^3/uL Differential Comment WBC Morphology (NORMAL) Platelet Estimate (NORMAL) Platelet Morphology (NORMAL) RBC Morph Micro Appear (NORMAL) Sodium (135-145) mmol/L Potassium (3.5-5.0) mmol/L Chloride (101-111) mmol/L Carbon Dioxide (21-32) mmol/L Anion Gap (6-13) BUN (6-20) mg/dL Creatinine (0.6-1.2) mg/dL Estimated GFR (MDRD) (>89) Glucose (70-100) mg/dL POC Whole Bld Glucose 306 H 322 H (70 - 100) mg/dL Calcium (8.5-10.3) mg/dL C-Reactive Protein (0-1.0) mg/dL B-Natriuretic Peptide 193 H (5-100) pg/mL 01/11/21 01/11/21 01/10/21 Range/Units 05:00 05:00 20:28 WBC 8.4 (4.8-10.8) x10^3/uL RBC 2.97 L (4.70-6.10) 10^6/uL Hgb 8.6 L (14.0-18.0) g/dL Hct 26.2 L (42.0-52.0) % MCV 88.2 (80.0-94.0) fL MCH 29.0 (27.0-31.0) pg MCHC 32.8 (32.0-36.0) g/dL RDW 13.6 (12.0-15.0) % Plt Count 113 L (130-450) 10^3/uL MPV 9.6 (7.4-11.4) fL Neut # (Auto) Not Reportable Lymph # (Auto) Not Reportable Newton # (Auto) Not Reportable Eos # (Auto) Not Reportable Baso # (Auto) Not Reportable Absolute Nucleated RBC Not Reportable Total Counted 100 Band Neuts % (Manual) 0 (0 - 10) % Abnorm Lymph % (Manual) 0 % Nucleated RBC % Not Reportable Neutrophils # (Manual) 6.6 (1.5-6.6) 10^3/uL Lymphocytes # (Manual) 1.0 L (1.5-3.5) 10^3/uL Monocytes # (Manual) 0.7 (0.0-1.0) 10^3/uL Eosinophils # (Manual) 0.1 (0-0.7) 10^3/uL Basophils # (Manual) 0.0 (0-0.1) 10^3/uL Differential Comment MANUAL DIFFERENTIAL WBC Morphology NORMAL APPEARANCE (NORMAL) Platelet Estimate DECREASED (<130,000) (NORMAL) Platelet Morphology NORMAL APPEARANCE (NORMAL) RBC Morph Micro Appear 1+ ANISOCYTOSIS (NORMAL) Sodium 130 L (135-145) mmol/L Potassium 4.0 (3.5-5.0) mmol/L Chloride 93 L (101-111) mmol/L Carbon Dioxide 26 (21-32) mmol/L Anion Gap 11.0 (6-13) BUN 29 H (6-20) mg/dL Creatinine 1.1 (0.6-1.2) mg/dL Estimated GFR (MDRD) 67 L (>89) Glucose 296 H (70-100) mg/dL POC Whole Bld Glucose 322 H (70 - 100) mg/dL Calcium 8.2 L (8.5-10.3) mg/dL C-Reactive Protein 9.9 H (0-1.0) mg/dL B-Natriuretic Peptide (5-100) pg/mL 01/10/21 Range/Units 16:42 WBC (4.8-10.8) x10^3/uL RBC (4.70-6.10) 10^6/uL Hgb (14.0-18.0) g/dL Hct (42.0-52.0) % MCV (80.0-94.0) fL MCH (27.0-31.0) pg MCHC (32.0-36.0) g/dL RDW (12.0-15.0) % Plt Count (130-450) 10^3/uL MPV (7.4-11.4) fL Neut # (Auto) Lymph # (Auto) Newton # (Auto) Eos # (Auto) Baso # (Auto) Absolute Nucleated RBC Total Counted Band Neuts % (Manual) (0 - 10) % Abnorm Lymph % (Manual) % Nucleated RBC % Neutrophils # (Manual) (1.5-6.6) 10^3/uL Lymphocytes # (Manual) (1.5-3.5) 10^3/uL Monocytes # (Manual) (0.0-1.0) 10^3/uL Eosinophils # (Manual) (0-0.7) 10^3/uL Basophils # (Manual) (0-0.1) 10^3/uL Differential Comment WBC Morphology (NORMAL) Platelet Estimate (NORMAL) Platelet Morphology (NORMAL) RBC Morph Micro Appear (NORMAL) Sodium (135-145) mmol/L Potassium (3.5-5.0) mmol/L Chloride (101-111) mmol/L Carbon Dioxide (21-32) mmol/L Anion Gap (6-13) BUN (6-20) mg/dL Creatinine (0.6-1.2) mg/dL Estimated GFR (MDRD) (>89) Glucose (70-100) mg/dL POC Whole Bld Glucose 217 H (70 - 100) mg/dL Calcium (8.5-10.3) mg/dL C-Reactive Protein (0-1.0) mg/dL B-Natriuretic Peptide (5-100) pg/mL ABX Reporting Has patient been on IV antibiotics over the past 48 hours?: Yes Sepsis Event Note (H) - Evaluation Current Stage of Sepsis: Ruled out Assessment/Plan - Problem List (1) Respiratory failure with hypoxia Impression: This is a gentleman who has had 1 dose of Keytruda. Being used to treat melanoma. Presented as shortness of breath to the medical ambulatory clinic will being evaluated for his next cycle and treatment plan. His O2 sat was 80% and as such she was sent to the emergency room. In the emergency room he was tachycardic but had a normal white cell count, no fever. Chest x-ray had mild pulmonary hypertension without focal infiltrate. He was Covid negative. CT of the chest was done to rule out PE and he was found to have severe pulmonary edema, patchy small consolidation. Treatment of the underlying conditions have been instituted with antibiotics and diuretics. He is slowly getting better. He was requiring 4 L of O2 sat yesterday. Then he was cut down to 3 L. Today he is down to 2 L. is on the phone with the patient. Explanation of why he is here, are treatment done over the phone with and patient listening for 20 minutes. Graph we will continue supplemental oxygen. Continue diuresis and antibiotics. Hopefully discharge will be when he is down to room air. (2)pneumonia Seen on CT angiogram to rule out PE. He has a small consolidation. He is on broad-spectrum antibiotics. Day #2. Blood cultures are negative after 1 day. Plan: Continue same antibiotics. He will need a total of 5 days of antibiotics. (3)pulmonary edema pt's CTA reveals bilateral small pleural effusion with moderate to severe pulmonary edema. No history of congestive heart failure. We did order an echocardiogram on the evening of admission to be done yesterday morning. However cadd technician is not available starting January 10 through January 13. If the patient is still here January 13 we will hopefully get echo then. In the meantime continue diuresis. January 10 he put out 1375 cc. So far today he is put out 1625 cc. 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 pt had surgery to remove Melanoma lesion done by [facility] recently, and on immune therapy by Dr. Lee, pt may followup with his oncologist closely as out-pt, He has an ongoing wound of his leg/foot. (5) Ulcer of left foot Conclusion/Plan: pt had wound ulcer from resection of acral lentiginous melanoma and uncontrolled diabetes wound ulcer as well. pt had wound VAC placed, and he will continue VAC wound care and followup with [facility] wound care (6) Diabetes Conclusion/Plan: A1C is 10.6, poor controlled. He is on Lantus 20 units at night, NovoLog 2 to 10 unit sliding scale. Lantus was increased yesterday. January 09: 205 December 28: 275, 281, 217, 322 December 29: 322, 309 Plan increase Lantus to 26 units and add fixed dose NovoLog before meals (7) BPH (benign prostatic hyperplasia) Conclusion/Plan: we will resume home Flomax (8) Elevated troponin Conclusion/Plan: pt had slight elevated troponin 25, repeat troponin at 24. pt denies chest pain. it is likely from demand ischemia. (9) hyponatremia Conclusion/Plan: Continues to be steady at 130 without any change. On .. Echocardiogram will be Wednesday.
[2021-01-11] MEDS: CYCLOBENZAPRINE 10 MG TABLET PO PRN ×3 (12:45→21:53)
[2021-01-11] MEDS: oxyCODONE 5 MG TABLET PO PRN ×2 (13:04→17:00)
[2021-01-11] MEDS: SIMETHICONE CHEW 80 MG TABLET PO SCH ×3 (13:41→21:53)
[2021-01-11] MEDS ORDERED: SODIUM CHLORIDE 0.9% 250 ML IV PRN (17:21)
[2021-01-11] MEDS ORDERED: SIMETHICONE CHEW 80 MG TABLET PO SCH (18:00)
[2021-01-11] MEDS: INSULIN GLARGINE 300 UNIT/3 ML PEN SUBQ SCH (21:54)
[2021-01-12] MEDS: SODIUM CHLORIDE FLUSH 0.9% 10 ML SYRINGE IVP SCH ×3 (00:45→14:06)
[2021-01-12] MEDS: CEFEPIME 2 GM in SODIUM CHLORIDE 0.9% MINIBAG 100 ML IV SCH ×3 (00:45→16:28)
[2021-01-12] MEDS: FUROSEMIDE 20 MG/2 ML VIAL IVP SCH ×2 (05:06→14:06)
[2021-01-12 05:14] LABS: BASOPHILS % (AUTO) 0.8 %; EOSINOPHILS % (AUTO) 5.4 %; HCT - HEMATOCRIT 26.7 % (42.0-52.0); HGB - HEMOGLOBIN 8.7 g/dL (14.0-18.0); LYMPHOCYTES % (AUTO) 14.4 %; MEAN CORPUSCULAR HGB CONC 32.6 g/dL (32.0-36.0); MEAN CORPUSCULAR VOLUME 85.9 fL (80.0-94.0); MEAN PLATELET VOLUME 9.6 fL (7.4-11.4); MONOCYTES % (AUTO) 6.2 %; NEUTROPHILS % (AUTO) 64.8 %; PLT - PLATELET COUNT 104 10^3/uL (130-450); RED BLOOD COUNT 3.11 10^6/uL (4.70-6.10); RED CELL DISTRIBUTION WIDTH 13.5 % (12.0-15.0); WHITE BLOOD COUNT 7.9 x10^3/uL (4.8-10.8)
[2021-01-12 05:23] LABS: ABNORMAL LYMPHS % (MANUAL) 0 %; BAND NEUTROPHILS % (MANUAL) 0 %
[2021-01-12 05:26] LABS: CALCIUM 8.5 mg/dL (8.5-10.3); CREATININE 1.1 mg/dL (0.6-1.2); CRP - C-REACTIVE PROTEIN 8.8 mg/dL (0-1.0)
[2021-01-12 05:55] LABS: BASOPHILS # (MANUAL) 0.1 10^3/uL (0-0.1); BASOPHILS % (MANUAL) 1 %; DIFFERENTIAL COMMENT MANUAL DIFFERENTIAL; EOSINOPHILS # (MANUAL) 0.5 10^3/uL (0-0.7); LYMPHOCYTES # (MANUAL) 1.5 10^3/uL (1.5-3.5); LYMPHOCYTES % (MANUAL) 19 %; MONOCYTES # (MANUAL) 0.6 10^3/uL (0.0-1.0); NEUTROPHILS # (MANUAL) 5.2 10^3/uL (1.5-6.6); PLATELET ESTIMATE, MANUAL DECREASED (<130,000) (NORMAL); PLATELET MORPHOLOGY M (NORMAL); RBC MORPHOLOGY (MULTIPLE) 1+ MACROCYTOSIS (NORMAL); WBC MORPHOLOGY (MULTIPLE) NORMAL APPEARANCE (NORMAL)
[2021-01-12] MEDS: INSULIN ASPART 300 UNIT/3 ML PEN SUBQ SCH ×7 (07:42→21:20)
[2021-01-12] MEDS ORDERED: INSULIN ASPART 300 UNIT/3 ML PEN SUBQ ONE (07:57)
[2021-01-12] MEDS ORDERED: INSULIN ASPART 300 UNIT/3 ML PEN SUBQ SCH (08:00)
[2021-01-12] MEDS: SIMETHICONE CHEW 80 MG TABLET PO SCH ×4 (08:18→21:21)
[2021-01-12] MEDS: MULTIVITAMIN W/MINERALS TABLET PO SCH (08:18)
[2021-01-12] MEDS: SACCHAROMYCES BOULARDII 250 MG CAPSULE PO SCH ×2 (08:18→17:21)
[2021-01-12] MEDS: ENOXAPARIN 40 MG/0.4 ML SYRINGE SUBQ SCH (08:18)
[2021-01-12] MEDS: FERROUS SULFATE 325 MG TABLET PO SCH (08:18)
[2021-01-12] MEDS: TAMSULOSIN 0.4 MG CAPSULE PO SCH (08:18)
--- NOTE | 2021-01-12 14:14 | PROVIDER PROGRESS NOTE ---
Progress Note January 12, 2021 2:12 PM I had seen the patient this morning and he was showing signs of depression. Withdrawal emotionally. He just did not want to be here anymore. But he was overall stable. Still hypoxic enough that I want him to stay until hypoxia resolved. His glucose was rising. As such increase his Lantus to 28 units and added NovoLog insulin 5 units with meals. Approximately 10 minutes ago nursing stated that they heard a noise in his room. Patient had gotten up unaccompanied in spite of repeated warnings to call nursing. They heard his wound VAC hit the floor. The immediately notified me and I examined the patient. He said he was embarrassed. He just did not want to bother people. He was so weak that he just could not make it to the bathroom and he sat down on the floor. He denied a blow to the head, no pain in his hips or knees. He just wanted to get back in bed. 10 minutes later after that, nurse reports he is now suddenly confused. He does not know where he is, what day he is, and hypoxia is worsening. Medication list reviewed. Unchanged from yesterday. He is still on cefepime, heparin for DVT prophylaxis, and increasing Lantus. Most recent glucose 2 hours ago was 296. Temperature 36.4. Blood pressure 130/74. Heart rate is 113. Respirations are 18. He is 98% saturated on 4 L. He had been weaned down to 2-1/2 L this morning. On examination he is 6 foot 1 inch tall, 92.9 kg. Head and neck exam shows no trauma. No lacerations. Neck is supple. Lungs are clear to auscultation and percussion with rhonchorous upper airway sounds. No respiratory distress. No wheezing. Tachycardic. He has been in the 90s consistently and is 113 right now. Regular rate and rhythm. The abdomen is scratch that Abdomen is soft, firm abdominal wall that is unchanged. Nontender. Hypoactive bowel sounds. left groin wound closed, healing. no redness or heat or bulging. He has his wound VAC in place, wounds from previous surgeries are healing. No edema, Homans cords negative. Verbal, able to answer appropriately with sentences. But is now acutely disoriented. Pupils are reactive, no facial droop, no slurred speech, no focal deficits. he has normal strength in upper and lower extremities. will follow a simple command such as "Hold my fingers as tight as you can." But when I ask him to close his eyes, and lift up his right leg for me he cannot process it. I then asked him to open his eyes, and move his right leg and he cannot. But when I touch his foot and then say move your right leg away from my hand he is able to do that. Words are garbled. He does not know where he is and he says "I am in #9". He cannot tell me the date. He tells me that he remembers me but then he cannot remember what I do. But he insists that he knows me. Assessment/plan 1. Respiratory failure with hypoxia. At this time the diagnosis is varied between pneumonia and congestive heart failure/pulmonary edema as a cause of his hypoxia. He has had 1 dose of Keytruda. Both underlying conditions have been treated. He was improving, having decreasing O2 sats. By yesterday evening going back up on his oxygen requirement. Today he is waxed and waned. Back up to 4-1/2 L. Plan: Recheck chest x-ray 2. Pneumonia. Day #3 of antibiotics. Will need a total of 5 days of antibiotics. 3. Pulmonary edema. Improved with diuresis. No echocardiogram available until Wednesday (today is Wednesday). If he is still in the hospital will obtain echo then. 4. Acral lentiginous melanoma. Status post radical excision at [place] by plastic surgery. Status post 1 dose of immunotherapy. To start a different immune therapy because of reaction to Keytruda. Plastic surgeon called us yesterday and asked us to change the wound VAC either Wednesday or Wednesday. We do not have wound care available until Wednesday but nursing staff says they are able to do that on their own. We will plan on changing it tomorrow then. 5. Ulcer left foot. Please refer to problem #4 solution 6. Diabetes mellitus. Glucose continues to be elevated. Ominous sign in a patient who is supposedly on the mend. Not on steroids. Plan: Increase Lantus to 28 units, add NovoLog fixed dose with meals 5 units, continue sliding scale. This morning I gave him an extra 11 units on top of his sliding scale. 7. Benign prostatic hypertrophy. On his home Flomax. He is urinating frequently, decreased stream. But he is adamant that he does not need intervention. Unfortunately he fell on the way back from the bathroom. 8. Chronic hyponatremia. He has been unchanged since admission and he stayed at 130. 9. New sudden confusion after a recent fall. No trauma visible on physical exam. His confusion may be metabolic induced from his hypoxia, illness, but will check CT of the head and evaluate. 3:34 pm Radiology called to let me know that he has several areas of hyperdense changes. CT of the head has focal areas of hyperdensity involving the superior and anterior aspects of the left frontal lobe. Differential diagnosis includes hemorrhagic metastases versus hemorrhagic contusions. I let the radiologist know that the patient has melanoma and he feels that these hyperdense nodules may be simply related to hyperdense melanoma mets without superimposed acute hemorrhage. Short-term follow-up noncontrast CT versus brain MRI would be recommended for further evaluation since I cannot get an MRI until Wednesday. There should be enough change if this is bleeding. If there is no change we would lean toward metastatic disease. He would need an MRI next week.We will order a CT of the head for 6 hours. Chest x-ray has generalized interstitial prominence which is similar to his previous chest x-ray on January 09. As such as hypoxia is ongoing congestive heart failure and pulmonary edema. I would not change his management of ongoing antibiotics and diuresis. I did try and call his to update her on his status. Unfortunately the number we have for her says that the voicemail is full. We will try to find other numbers to contact her. 3:56 pm-4:10 pm is at the bedside. I've explained the change in status before and after his fall. She is understandably overwhelmed. She and her received a "good prognosis" for the treatment of his cancer and feel that his body is not responding as they expected. They even delayed further surgery to get the immunotherapy on board faster. I've explained that I will repeat the CT of head in 6 hours. I will up date her. He is confused, pulling at lines, not able to be directed at all now. Doesn't recognize her. Is nonverbal. I reask about code status: Full code in view of "good prognosis" from Oncology. She asks if the kids should come. I explain he is not imminently dying but is deteriorating. If we cannot control the process, he will not be with us in weeks. Plan: nuha. 1:1 sitter. Greater than 40 minutes critical evaluation spent with this patient.
--- NOTE | 2021-01-12 15:07 | XRAY Report ---
PROCEDURE: Chest 1 View X-Ray INDICATIONS: sudden hypoxia worsening TECHNIQUE: One view of the chest was acquired. COMPARISON: 01/09/2021, chest radiograph and chest CT FINDINGS: Surgical changes and devices: There is a stable right-sided chest port. Lungs and pleura: No large pleural effusions or pneumothorax can be seen on this portable chest x-ra y. Mild interstitial prominence is seen, which appears similar compared to the prior. Low lung volume s can be seen, causing a crowded appearance to the lung markings. Mediastinum: Mediastinal contours appear normal. Heart size is normal. Bones and chest wall: No suspicious bony lesions. Overlying soft tissues appear unremarkable. IMPRESSION: Generalized interstitial prominence is seen, which is similar to the prior. Reviewed by: Km Soto MD on 01/12/2021 2:06 PM [email or web address] Approved by: Km Soto MD on 01/12/2021 2:06 PM [facility] Station ID: [id number]
--- NOTE | 2021-01-12 15:41 | CT Report ---
PROCEDURE: HEAD WO INDICATIONS: sudden confusion disorientation after unwitnessed fall TECHNIQUE: Noncontrast 4.5 mm thick angled axial sections acquired from the foramen magnum to the vertex. For r adiation dose reduction, the following was used: automated exposure control, adjustment of mA and/or kV according to patient size. COMPARISON: None. FINDINGS: Image quality: Excellent. CSF spaces: Basal cisterns are patent. No extra-axial fluid collections. Ventricles are normal in size and shape. Brain: Focal areas of hyperdensity can be seen involving the superior and anterior aspects of the lef t frontal lobe. A few similar smaller nodules can be seen on the right as well. No midline shift. Joyner-white matter interface is normal. Skull and face: Calvarium and visualized facial bones are intact, without suspicious lesions. Sinuses: Visualized sinuses and mastoids are clear. IMPRESSION: Focal areas of hyperdensity can be seen, particularly involving the superior and anterio r aspects of the left frontal lobe. Differential diagnosis includes hemorrhagic metastases versus hem orrhagic contusions. Discussion with Dr. Ronquillo reveals the additional history that this patient has known metastatic melanoma. These hyperdense nodules may simply be related to hyperdense melanoma meta stases, yet without superimposed acute hemorrhage. Short-term follow-up noncontrast CT versus brain MRI (without and with contrast) would be recommende d for further evaluation (assuming that there is no contraindication). Note: Findings and recommendations discussed by telephone with Dr. Ronquillo at 2:37 PM [place] time on . Reviewed by: Km Soto MD on 01/12/2021 2:40 PM [facility] Approved by: Km Soto MD on 01/12/2021 2:40 PM [facility] Station ID: [id number]
[2021-01-12] MEDS ORDERED: LORazepam 2 MG/ML VIAL IVP STA ×2 (16:15→23:04)
[2021-01-12] MEDS: DEXAMETHASONE 4 MG/ML VIAL IVP SCH ×2 (16:28→21:20)
[2021-01-12] MEDS: LORazepam 2 MG/ML VIAL IVP PRN ×2 (19:22→22:32)
[2021-01-12] MEDS ORDERED: IOVERSOL 320 100 ML VIAL IVP ONE (20:55)
[2021-01-12] MEDS ORDERED: INSULIN REGULAR HUMAN 300 UNIT/3 ML VIAL IVP ONE (20:56)
[2021-01-12] MEDS: INSULIN GLARGINE 300 UNIT/3 ML PEN SUBQ SCH (21:19)
[2021-01-12] MEDS: SODIUM CHLORIDE FLUSH 0.9% 10 ML SYRINGE IVP PRN (22:33)
[2021-01-12] MEDS ORDERED: LORazepam 2 MG/ML VIAL ONE (23:08)
[2021-01-12] MEDS: HALOPERIDOL 5 MG/ML VIAL IVP PRN (23:56)
[2021-01-13 00:08] LABS: BASOPHILS % (AUTO) 0.6 %; EOSINOPHILS % (AUTO) 0.2 %; HCT - HEMATOCRIT 27.1 % (42.0-52.0); HGB - HEMOGLOBIN 9.2 g/dL (14.0-18.0); LYMPHOCYTES % (AUTO) 12.3 %; MEAN CORPUSCULAR HEMOGLOBIN 28.8 pg (27.0-31.0); MEAN CORPUSCULAR HGB CONC 33.9 g/dL (32.0-36.0); MEAN CORPUSCULAR VOLUME 84.7 fL (80.0-94.0); MEAN PLATELET VOLUME 9.8 fL (7.4-11.4); MONOCYTES % (AUTO) 7.3 %; NEUTROPHILS % (AUTO) 69.6 %; PLT - PLATELET COUNT 93 10^3/uL (130-450); RED CELL DISTRIBUTION WIDTH 13.4 % (12.0-15.0); WHITE BLOOD COUNT 9.4 x10^3/uL (4.8-10.8)
[2021-01-13 00:17] LABS: ABNORMAL LYMPHS % (MANUAL) 0 %; INR 1.4 (0.8-1.2); PT - PROTHROMBIN TIME 14.9 secs (9.9-12.6)
[2021-01-13] MEDS: CEFEPIME 2 GM in SODIUM CHLORIDE 0.9% MINIBAG 100 ML IV SCH ×2 (00:35→08:47)
[2021-01-13] MEDS ORDERED: IOVERSOL 320 100 ML VIAL IVP ONE (00:35)
[2021-01-13 00:36] LABS: BAND NEUTROPHILS % (MANUAL) 7 %; LYMPHOCYTES # (MANUAL) 0.9 10^3/uL (1.5-3.5); LYMPHOCYTES % (MANUAL) 10 %; METAMYELOCYTES % (MANUAL) 3 %; MONOCYTES # (MANUAL) 0.6 10^3/uL (0.0-1.0); MYELOCYTES % (MANUAL) 2 %; NEUTROPHILS # (MANUAL) 7.4 10^3/uL (1.5-6.6); NUCLEATED RBC (MANUAL) 2 %; PLATELET ESTIMATE, MANUAL DECREASED (<130,000) (NORMAL); PLATELET MORPHOLOGY NORMAL APPEARANCE (NORMAL); RBC MORPHOLOGY (MULTIPLE) NORMAL APPEARANCE (NORMAL)
[2021-01-13 00:37] LABS: DIFFERENTIAL COMMENT MANUAL DIFFERENTIAL; WBC MORPHOLOGY (MULTIPLE) NORMAL APPEARANCE (NORMAL)
[2021-01-13] MEDS: SODIUM CHLORIDE FLUSH 0.9% 10 ML SYRINGE IVP SCH ×3 (01:22→16:02)
[2021-01-13] MEDS: SODIUM CHLORIDE FLUSH 0.9% 10 ML SYRINGE IVP PRN (01:22)
--- NOTE | 2021-01-13 01:27 | PROVIDER PROGRESS NOTE ---
Food Stand Manager Note - Food Stand Manager Note Food Stand Manager Note: I did review the repeat CT of the head without contrast which showed an overall stable multiple petechial hemorrhages without evidence of midline shift. This finding was discussed with the patient's son and his . The patient on exam was quite restless although he had received Ativan previously. I did switch this to Haldol 1 mg every 6 hours to help with his agitation/delirium. On exam, he is able to move all 4 extremities and like mention above, he is quite restless. His pupils were constricted but reactive to light. He was not following commands. I called neurosurgery at [facility] to review the CT scans. Neurosurgery agreed that this appears to be more likely metastatic melanoma. They feel that there is no surgical intervention warranted at this time and even if oncology want biopsy, they feel that the hemorrhages are too small to obtain a biopsy. We did discuss the patient's labs including a sodium of 130 and a platelet count of 93. They recommended normal saline to try and increase the sodium to 140. They felt the platelet count is okay in the 90s to low 100s. If it did dip below 90s then they recommended platelet transfusion. They recommended discussing with oncology regarding treatment with radiation/chemotherapy. The also recommended obtaining MRI of the brain with and without contrast and consideration of EEG and neurology consult to ensure that the patient is not having seizures. They feel that it is not necessary to repeat a CT tomorrow as the hemorrhages appeared stable compared to earlier today. At this point in time, there is low suspicion for seizures but this does remain on the differential. I did speak with the patient's and updated her on neurosurgery's recommendation. The plan is to keep the patient here hospitalized overnight. We will speak with oncology in the morning to discuss potential treatment options. The patient may need to be transferred sooner than later to higher level of care as he cannot have MRI available tomorrow and so he can receive an expedited work-up and consideration of radiation/chemotherapy. I have started the patient on normal saline at 125 mL an hour. He had been diuresed for suspected heart failure but we will hold this for the time being and monitor his respiratory status closely as he is receiving saline. If he does have increasing oxygen requirements, we can consider hypertonic saline. We will monitor his CBC once again in the morning and transfuse for platelet count greater than 90. His systolic blood pressure is already less than 140 and so there is no need for Cardene infusion. We will continue with neurochecks. One-to-one observation. We will change his vitals to every 2 hours. His nurse is only caring just for him and given he is hemodynamically stable and the repeat CT is stable, we will hold off on transferring to the ICU unless he has further neurologic decline or change in his hemodynamics as management would not change at this time.
[2021-01-13] MEDS: SODIUM CHLORIDE 0.9% 1,000 ML IV SCH ×3 (01:38→17:09)
[2021-01-13 05:28] LABS: BASOPHILS % (AUTO) 0.5 %; EOSINOPHILS % (AUTO) 0.1 %; HCT - HEMATOCRIT 26.2 % (42.0-52.0); HGB - HEMOGLOBIN 8.7 g/dL (14.0-18.0); MEAN CORPUSCULAR HEMOGLOBIN 28.6 pg (27.0-31.0); MEAN CORPUSCULAR HGB CONC 33.2 g/dL (32.0-36.0); MEAN CORPUSCULAR VOLUME 86.2 fL (80.0-94.0); MEAN PLATELET VOLUME 9.9 fL (7.4-11.4); MONOCYTES % (AUTO) 8.7 %; NEUTROPHILS % (AUTO) 67.7 %; PLT - PLATELET COUNT 82 10^3/uL (130-450); RED BLOOD COUNT 3.04 10^6/uL (4.70-6.10); RED CELL DISTRIBUTION WIDTH 13.7 % (12.0-15.0); WHITE BLOOD COUNT 8.6 x10^3/uL (4.8-10.8)
[2021-01-13 05:31] LABS: ABNORMAL LYMPHS % (MANUAL) 0 %
[2021-01-13 05:47] LABS: CALCIUM 8.7 mg/dL (8.5-10.3); CREATININE 1.2 mg/dL (0.6-1.2); CRP - C-REACTIVE PROTEIN 16.1 mg/dL (0-1.0); POTASSIUM 4.7 mmol/L (3.5-5.0)
[2021-01-13 05:50] LABS: BAND NEUTROPHILS % (MANUAL) 3 %; DIFFERENTIAL COMMENT MANUAL DIFFERENTIAL; EOSINOPHILS # (MANUAL) 0.1 10^3/uL (0-0.7); LYMPHOCYTES # (MANUAL) 0.9 10^3/uL (1.5-3.5); LYMPHOCYTES % (MANUAL) 10 %; MONOCYTES # (MANUAL) 0.6 10^3/uL (0.0-1.0); MYELOCYTES % (MANUAL) 6 %; NEUTROPHILS # (MANUAL) 6.5 10^3/uL (1.5-6.6); NUCLEATED RBC (MANUAL) 3 %; PLATELET ESTIMATE, MANUAL DECREASED (<130,000) (NORMAL); PLATELET MORPHOLOGY NORMAL APPEARANCE (NORMAL); RBC MORPHOLOGY (MULTIPLE) NORMAL APPEARANCE (NORMAL); WBC MORPHOLOGY (MULTIPLE) NORMAL APPEARANCE (NORMAL)
[2021-01-13] MEDS: HALOPERIDOL 5 MG/ML VIAL IVP PRN (05:52)
[2021-01-13] MEDS: INSULIN ASPART 300 UNIT/3 ML PEN SUBQ SCH ×7 (08:13→20:49)
[2021-01-13] MEDS: MULTIVITAMIN W/MINERALS TABLET PO SCH (08:16)
[2021-01-13] MEDS: SACCHAROMYCES BOULARDII 250 MG CAPSULE PO SCH (08:16)
[2021-01-13] MEDS: FERROUS SULFATE 325 MG TABLET PO SCH (08:16)
[2021-01-13] MEDS: DEXAMETHASONE 4 MG/ML VIAL IVP SCH ×2 (08:47→12:51)
[2021-01-13] MEDS: MORPHINE 2 MG/ML CARPUJECT IVP PRN ×5 (08:47→19:27)
[2021-01-13] MEDS: TAMSULOSIN 0.4 MG CAPSULE PO SCH (08:48)
[2021-01-13] MEDS: SIMETHICONE CHEW 80 MG TABLET PO SCH (08:48)
[2021-01-13] MEDS: CYCLOBENZAPRINE 10 MG TABLET PO PRN (09:00)
--- NOTE | 2021-01-13 09:59 | CT Report ---
PROCEDURE: HEAD WO INDICATIONS: Follow up contusions vs metastasis. TECHNIQUE: Noncontrast 4.5 mm thick angled axial sections acquired from the foramen magnum to the vertex. For r adiation dose reduction, the following was used: automated exposure control, adjustment of mA and/or kV according to patient size. COMPARISON: Comparison is made to prior head CT performed earlier in the day on 01/12/2021. FINDINGS: Image quality: Excellent. CSF spaces: Basal cisterns are patent. No extra-axial fluid collections. Ventricles are normal in size and shape. Brain: Numerous hyperdense foci are seen near the joyner-white matter junction, primarily involving th e left frontal lobe, although also seen on the right side. These are unchanged compared to the examin ation earlier in the day. No midline shift. No intracranial masses or hemorrhage. Joyner-white matter interface is normal. Skull and face: Calvarium and visualized facial bones are intact, without suspicious lesions. Sinuses: Visualized sinuses and mastoids are clear. IMPRESSION: Stable hyperdense nodules are seen, which primarily involve the left frontal lobe. Diffe rential diagnosis includes hemorrhagic metastases. Foci of petechial hemorrhage is also possible. In this patient with known metastatic melanoma, differential diagnosis includes high density metastases, without hemorrhage. If clinically appropriate, please consider additional short-term follow-up. Note: No significant discrepancy from the preliminary report. Reviewed by: Km Soto MD on 01/13/2021 8:57 AM TALIB Approved by: Km Soto MD on 01/13/2021 8:57 AM TALIB Station ID: [id number]
--- NOTE | 2021-01-13 10:57 | ADVANCE CARE PLANNING NOTE ---
Advance Care Planning - Planning Encounter Date: 01/13/21 Time: 10:54 Purpose: Discussed prognosis, establish goals of care with family. This discussion was Requested by his son and daughter. and power of weight loss physician is processing the patient's course, and is not able to be here at this moment. Parties in Attendance: Son, daughter, best friend since childhood (my soul brother) Decisional Capacity of the Patient: Since yesterday, the patient is deteriorated rapidly. He went from an alert oriented conversant gentleman to confused, then babbling speech, to then mute, agitated, unresponsive except to pain. 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 He was initially diagnosed with the primary lesion being the sole of his foot. He underwent radical dissection of that skin area, and groin lymph node dissection. He still has a wound VAC there. He is received 1 cycle of Keytruda. He is currently being considered for other therapy. I spoke to oncology on-call Vladislav Vidal. Fortuitously, this is the oncologist who saw the patient for the first time. To make it easier on the patient he was then referred to Dr. Ilda Lee here on [facility] to see. At that time he was a stage III melanoma. Proceeding with the radical dissection, lymph node dissection, and Keytruda. I explained the patient's course right now. With this course in mind, and the CT identifying possible metastatic disease, he recommends: 1. MRI of the head with and without gadolinium. This will more definitively establish if this is metastatic disease or not. He suspects by the patient's behavior that there was microscopic disease not seen on MRI of the head a month ago. 2. He does not recommend continued therapy with immune modulating drugs or chemotherapy. The only thing he might recommend is radiation therapy but that would only be palliative. - Encounter Subjective/Patient's Story: Very active man all of his life. This is per his son and daughter. Very fiercely independent. Love life. Was a wonderful father. His best friend in the room attest to that. Both best friend and son say that they have discussed "life in general". He did not have these discussions with his daughter. But both best friend and son stated that he would never want this. It was wanting to undergo surgery and be offered a chance for a longer life that was a good life, but this is not "quality of life". Both son and friend say that if he had known this is what was going to happen he would never have undergone this. He would not want to be in the hospital. He wants to be at home and to at home. However, his and power of weight loss physician has still not reached that point of understanding. She still wants patient to be a full code and we spoke to her on the phone. I explained the situation again. Shared the conversation I had with oncology. She still Believes this is happening. Objective/Medical Story: This is a 70-yrs-old male with a PMH significant for uncontrolled diabetes, left foot ulcer, diagnosis of positive Malignant Melanoma at October 2020 with locally advanced involving left leg, left plantar foot, left inguinal lymph nodes and left pelvic lymph nodes, surgical resection partial of left bottom foot with wound VAC, which was done at [facility], who was brought [place] [facility] [place] shortness of breath. pt has been seen his wound care in the [facility] [place]. He is sent to the emergency department for evaluation of hypoxia. Pt was found Afebrile in ER but has only 80% sat on room air at ER with Tachycardia. pt also report he had 100 degree temperature at home with sweats and fatigue. pt report he Started Keytruda Dec, 2020. he will have combination immune therapy, pt is followup with oncologist Dr. Ilda Lee. Pt denies chest pain, headache. Routine laboratory tests show his WBC is 10, Hemoglobin is 9.2, BUN 22, creatin ine 1.1, glucose 159, Troponin 25, BNP 199. CXR reveals Mild pulmonary vascular congestion, no focal infiltrate, pleural effusion or pneumothorax. Discussed the care goal with patient, patient request full code - Past Medical History Endocrine/Autoimmune: reports: Type 2 diabetes : reports: Benign prostate hypertrophy Psych: reports: None Musculoskeletal: reports: None Derm: reports: Psoriasis MRSA Hx?: No Other Past Medical History: Melanoma - Past Surgical History Derm: reports: Skin cancer surgery He was treated for pneumonia and pulmonary edema. It is our suspicion that Keytruda may have contributed to causing the pulmonary edema. He did not have PE. We treated him for pneumonia as well. He was actually improving and leading less and less oxygen. Plan was for discharge either January 12 or January 13. He began deteriorating with a muted and withdrawn affect yesterday morning. He then walked to the bathroom and came out of the bathroom and sat on the floor. We initially thought he felt but nursing said they were able to see the last part of where he just sat on the floor and the noise they heard was his wound VAC hitting the floor. His initial exam showed no head contusions, pupils reactive, speech was normal. The patient said he was embarrassed that so many people had to come lift him up. Within 10 to 15 minutes he was starting to get confused, not oriented to place. I reexamined him and neurologically there were no focal deficits, pupils reactive, no facial droop, but he was clearly no longer thinking correctly. Not only was he not oriented he was babbling, not making sense. Within an hour after that he was agitated, no longer speaking. Pulling at everything and we had to make an one-to-one. I obtained a CT of the head which showed possible metastatic disease or contusions with slight bleeding around the contusions. is at the bedside. I updated her. I offered my opinion that the prognosis was poor, that I suspected metastatic disease. She was overwhelmed. She stated that she was told that her could be cured from this with therapy and she did not understand how he could go from someone with a potential for being cured to this. I spoke to radiology who recommended repeating the CT of the head within 6 hours to see if there is evolution. This would distinguish between contusions or metastatic disease. Repeat CT shows mo st likely metastatic disease. His son and daughter are now at the bedside. They state that mom is overwhelmed with this. She is in shock trying to process this. At this time the patient is a full code and power of weight loss physician/ wants everything done. Goals of Care: At this time are conflicted. On the one hand his and power of weight loss physician want him to stay and to be receiving aggressive chemo/immune modulating therapy. This is in spite of my telling her that oncology is not offering that. Children, are in opposite mindset. They feel that dad is dying, and would like to take him home with hospice. Plan: This is an obviously difficult time for this family. There is a lot of affection and love being manifested with hugs, holding each other, holding him and sitting at his bedside. They are in grief. I have told him that I am here for however long they need for the family to come together and a decision. And when they come to a decision to let us know. Additional Discussion: They did ask me what would happen if they transition to hospice and how long it would take. I explained that I would call hospice tomorrow morning. We would then need to get equipment delivered. They are very anxious to make sure that he gets comfort medications such as morphine, nausea, fever. I said that would be taking care of. They are the ones that would be staying to take care of them. There is 4 children overall plus his best friend. They think they can manage it at home. They asked how long it would be and I explained that he is not eating or drinking at this point in time so it may be a matter of a few days for up to 2 to 3 weeks. Code Status: Attempt Resuscitation Time spent on advance care plannin
--- NOTE | 2021-01-13 11:23 | PROVIDER PROGRESS NOTE ---
Progress Note January 13, 2021 11:14 AM Since last night the patient has not woken up. Repeat CT of the head shows probable metastatic disease. His son and daughter are at the bedside. His best friend since childhood is at the bedside. He needs a one-to-one assist to make sure he does not stumble out of bed or pull out lines. Daughter has asked him to please receive pain medicines. She feels the pain is being manifested by his agitation and occasional grimacing of face or grimacing of face when you touch his left groin or left foot. Medications continue to be active treatment of pneumonia and CHF. He also has uncontrolled diabetes and steroids have been added and it makes it worse. He is on acetaminophen, cefepime, cyclobenzaprine, Decadron, Feosol, Haldol, aspartate insulin, Lantus, morphine IV, minerals, Zofran, Roxicodone, Florastor, simethicone, Flomax.On heparin subcu for port flushes Temperature is 36.6. Pulse is 105. Respirations 18. 93% on 6 L Oxymizer. He keeps on pulling the Oxymizer off. Mumbling, not opening his eyes, not responding to his children's voice. But will respond to touch and that he will automatically withdraw to a simple lung exam or feeling of his pulse. Neck has shotty adenopathy. But supple. Lungs have coarse upper airway sounds with no use of accessory muscles. Occasional cough. Tachycardic regular rate and rhythm. Abdomen is firm walled, hypoactive bowel sounds, and he is incontinent of urine. Extremities are without edema. He has a wound VAC on the left foot. The left groin dissection is closed, healed, slightly edematous and warm but no redness. Neurologically he opens his eyes to painful stimuli, no response to verbal questioning, withdraws in response to pain motor response. Total of 7 points for [place] Coma Scale Sodium 134, potassium 4.7. BUN 33, creatinine 1.2. Random glucose 419. BNP 262. White cell count 8.6. Hemoglobin 8.7. Platelets dropping. On admission he was 130,000. He has been steadily decreasing and he is 84 today. Assessment/plan Until and power of real estate attorney asked me to stop treating him I will continue to treat with all measures possible. 1. Metabolic encephalopathy 2. 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 Pneumonia, day #4 antibiotics 4. Diabetes mellitus, uncontrolled, with hyperglycemia even before steroids 5. Benign prostatic hypertrophy, unable to take Flomax 6. Chronic hyponatremia 7. Thrombocytopenia, His metabolic encephalopathy is attributed to the metastatic melanoma. I have started him on Decadron. Subsequent rise in glucose so I will have to adjust his Lantus and short acting insulin today. I will continue antibiotics. Daughter and son are asking if I can stop that. I have carefully explained and repeated myself until their mother, power of real estate attorney, asked me to stop everything I really cannot. They will have to sit down and get together as a family to get on the same page and guide me for how aggressive they want me to be. I will stop his p.o. medications. Change everything to IV as much as possible. I have started morphine at the daughter's request. Because of the thrombocytopenia, and his CT of brain results, he is a candidate for platelets. Possible bleeding in the brain with platelets less than 100,000. As such we have ordered 1 pack of platelets to be transfused. Stop heparin. Insert a [place]. Son and daughter are leaning toward comfort measures only and transitioning to hospice. is still of the opinion that she wants everything done. Please see advance care planning conversation.
[2021-01-13] MEDS ORDERED: ACETAMINOPHEN 650 MG SUPP PR PRN (11:36)
[2021-01-13] MEDS ORDERED: INSULIN GLARGINE 300 UNIT/3 ML PEN SUBQ SCH (12:00)
[2021-01-13] MEDS ORDERED: INSULIN ASPART 300 UNIT/3 ML PEN SUBQ ONE (14:26)
[2021-01-13] MEDS: INSULIN GLARGINE 300 UNIT/3 ML PEN SUBQ SCH (20:53)
[2021-01-14] MEDS: SODIUM CHLORIDE FLUSH 0.9% 10 ML SYRINGE IVP SCH ×3 (01:09→16:38)
[2021-01-14] MEDS: MORPHINE 2 MG/ML CARPUJECT IVP PRN ×6 (01:31→21:26)
[2021-01-14] MEDS: SODIUM CHLORIDE 0.9% 1,000 ML IV SCH ×2 (04:54→14:05)
[2021-01-14] MEDS ORDERED: LORazepam 0.5 MG TABLET SL PRN (07:37)
[2021-01-14] MEDS ORDERED: DEXTROSE 5%-0.9% NACL 1,000 ML IV SCH (08:00)
[2021-01-14] MEDS ORDERED: INSULIN ASPART 300 UNIT/3 ML PEN SUBQ SCH (08:00)
[2021-01-14] MEDS: HALOPERIDOL 5 MG/ML VIAL IVP PRN ×2 (08:10→16:49)
--- NOTE | 2021-01-14 11:33 | PROVIDER PROGRESS NOTE ---
Assessment/Plan - Problem List (1) Metabolic encephalopathy Assessment/Plan: patient still has not woken up. pt still need 5-6 LPM of O2 to support. pt has no acute respiratory distress. pt appear comfortable laying at the bed. all pt's family including his DPOA chose hospice care for pt after they discus sed with prior medical provider. consulted both hospice care and social secretary. pt's family hope pt could be urgently d/c to home and hope pt could at home. social secretary report pt was accepted by [facility], but pt can only be accepted on tomorrow morning as the earliest, and hospice equipment will be delivered to pt's home. ammonia worker discussed with pt's family the plan. plan: d/c pt on tomorrow morning and followup with [facility]. 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 Patient was recently diagnosis with metastatic melanoma. pt's family including his DPOA chose hospice care for pt. We will continue pain control, anxiety control, and focus on pt's comfortable care. Plan to discharge patient to home on tomorrow and follow-up with hospice care - Current Meds Current Meds: Current Medications Generic Name Dose Route Start Last Admin Trade Name Freq PRN Reason Stop Dose Admin Haloperidol 1 mg 01/12/21 23:41 01/14/21 08:10 Haloperidol 5 Mg/Ml Vial IVP 1 mg Q6H PRN Administration Agitation Dextrose/Sodium Chloride 1,000 mls @ 83.333 mls/hr 01/14/21 08:00 01/14/21 10:16 D5ns IV 0 mls/hr .Q12H [facility] Infusion Insulin Aspart 1 - 5 unit 01/14/21 08:00 01/14/21 08:09 Insulin Aspart 300 Unit/3 Ml Pen SUBQ 2 unit 0800,1200,1700,2100 [facility] Administration Protocol Morphine Sulfate 2 mg 01/13/21 07:49 01/14/21 08:10 Morphine 2 Mg/Ml Carpuject IVP 2 mg Q2HR PRN Administration PAIN Sodium Chloride 10 ml 01/09/21 17:11 01/13/21 01:22 Sodium Chloride Flush 0.9% 10 Ml Syringe IVP 10 ml PRN PRN Administration NEEDED PER PROVIDER ORDERS Sodium Chloride 10 ml 01/10/21 01:00 01/14/21 08:10 Sodium Chloride Flush 0.9% 10 Ml Syringe IVP Not Given 0100,0900,1700 [facility] - Lab Result Fish Bone Diagrams: 01/13/21 05:21 01/13/21 05:21 - Additional Planning My Orders: My Active Orders 01/14/21 Social Work Consult [CONS] Routine 01/14/21 07:37 LORazepam [Ativan] 0.5 mg SL Q6H PRN 01/14/21 08:00 Dextrose 5%-0.9% NaCl [D5ns] 1,000 ml IV 83.333 mls/hr Insulin Aspart [NovoLOG] 1 - 5 unit SUBQ 0800,1200,1700,2100 Subjective - Subjective Patient Reports: Resting Comfortably Objective Vital Signs: Vital Signs - 24 hr 01/13/21 01/13/21 01/13/21 11:51 11:56 12:01 Temperature 36 C L 36.5 C 36.4 C L Heart Rate 108 H 107 H 105 H Heart Rate [ Brachial] Respiratory 24 23 23 Rate Blood Pressure 127/58 L 127/59 L 125/59 L Blood Pressure [Left Brachial artery] Blood Pressure [Right Brachial artery] O2 Saturation 01/13/21 01/13/21 01/13/21 12:40 13:00 15:30 Temperature 36.4 C L 36.6 C 36.6 C Heart Rate 109 H Heart Rate [ 108 H 102 H Brachial] Respiratory 24 24 18 Rate Blood Pressure 135/56 H Blood Pressure [Left Brachial artery] Blood Pressure 142/65 H [Right Brachial artery] O2 Saturation 94 95 01/14/21 01/14/21 01/14/21 00:00 02:00 04:42 Temperature Heart Rate Heart Rate [ Brachial] Respiratory Rate Blood Pressure Blood Pressure 116/53 L [Left Brachial artery] Blood Pressure 108/57 L 120/56 L [Right Brachial artery] O2 Saturation 01/14/21 01/14/21 01/14/21 05:54 07:29 09:17 Temperature 36.8 C Heart Rate Heart Rate [ 117 H 118 H Brachial] Respiratory 20 20 Rate Blood Pressure Blood Pressure 130/56 L [Left Brachial artery] Blood Pressure 121/53 L [Right Brachial artery] O2 Saturation 93 90 L Oxygen O2 Source Oxymask Oxygen Flow Rate 3 I&O (Last 24 Hrs): Intake and Output Totals x24h 01/12/21 01/13/21 01/14/21 23:59 23:59 23:59 Intake Total 1160 2614 1452.388 Output Total 2050 300 300 Balance -890 2314 1152.388 General: Other (pt is not woken up but comfortable laying at the bed) HEENT: Atraumatic Neck: Supple Lymphatic: no adenopathy Neuro: Non Focal Cardiovascular: Regular rate, Normal S1, Normal S2 Respiratory: Chest non-tender, No respiratory distress Abdomen: Normal bowel sounds, Soft Extremities: Normal pulses - Results Results: Laboratory Results WBC 8.6 x10^3/uL (4.8-10.8) 01/13/21 05:21 RBC 3.04 10^6/uL (4.70-6.10) L 01/13/21 05:21 Hgb 8.7 g/dL (14.0-18.0) L 01/13/21 05:21 Hct 26.2 % (42.0-52.0) L 01/13/21 05:21 MCV 86.2 fL (80.0-94.0) 01/13/21 05:21 MCH 28.6 pg (27.0-31.0) 01/13/21 05:21 MCHC 33.2 g/dL (32.0-36.0) 01/13/21 05:21 RDW 13.7 % (12.0-15.0) 01/13/21 05:21 Plt Count 82 10^3/uL (130-450) L 01/13/21 05:21 MPV 9.9 fL (7.4-11.4) 01/13/21 05:21 Reticulocyte % (Auto) 2.37 % (0.5-2.3) H 01/09/21 17:10 Neut # (Auto) Not Reportable 01/13/21 05:21 Lymph # (Auto) Not Reportable 01/13/21 05:21 Grayson # (Auto) Not Reportable 01/13/21 05:21 Eos # (Auto) Not Reportable 01/13/21 05:21 Baso # (Auto) Not Reportable 01/13/21 05:21 Absolute Nucleated RBC Not Reportable 01/13/21 05:21 Total Counted 100 01/13/21 05:21 Band Neuts % (Manual) 3 % (0-10) 01/13/21 05:21 Abnorm Lymph % (Manual) 0 % 01/13/21 05:21 Metamyelocytes % 3 % (-0) H 01/12/21 23:56 Myelocytes % 6 % (-0) H 01/13/21 05:21 Nucleated RBC % Not Reportable 01/13/21 05:21 Neutrophils # (Manual) 6.5 10^3/uL (1.5-6.6) 01/13/21 05:21 Lymphocytes # (Manual) 0.9 10^3/uL (1.5-3.5) L 01/13/21 05:21 Monocytes # (Manual) 0.6 10^3/uL (0.0-1.0) 01/13/21 05:21 Eosinophils # (Manual) 0.1 10^3/uL (0-0.7) 01/13/21 05:21 Basophils # (Manual) 0.0 10^3/uL (0-0.1) 01/13/21 05: Nucleated RBCs 3 % 01/13/21 05:21 Differential Comment MANUAL DIFFERENTIAL 01/13/21 05:21 Manual Slide Review Indicated 01/10/21 09:05 WBC Morphology NORMAL APPEARANCE (NORMAL) 01/13/21 05: Platelet Estimate DECREASED (<130,000) (NORMAL) 01/13/21 05:21 Platelet Morphology NORMAL APPEARANCE (NORMAL) 01/13/21 05:21 RBC Morph Micro Appear NORMAL APPEARANCE (NORMAL) 01/13/21 05:21 ESR 74 mm/Hr (0-20) H 01/09/21 17:10 Absolute Retic 0.075 10^6/uL (0.020-0.110) 01/09/21 17:10 PT 14.9 secs (9.9-12.6) H 01/12/21 23:56 INR 1.4 (0.8-1.2) H 01/12/21 23:56 Sodium 134 mmol/L (135-145) L 01/13/21 05:21 Potassium 4.7 mmol/L (3.5-5.0) 01/13/21 05:21 Chloride 93 mmol/L (101-111) L 01/13/21 05:21 Carbon Dioxide 27 mmol/L (21-32) 01/13/21 05:21 Anion Gap 14.0 (6-13) H 01/13/21 05:21 BUN 33 mg/dL (6-20) H 01/13/21 05:21 Creatinine 1.2 mg/dL (0.6-1.2) 01/13/21 05:21 Estimated GFR (MDRD) 60 (>89) L 01/13/21 05:21 Glucose 419 mg/dL (70-100) H 01/13/21 05:21 POC Whole Bld Glucose 284 mg/dL (70 - 100) H 01/14/21 11:28 Estimat Average Glucose 258 mg/dL (70-100) H 01/09/21 17:10 Hemoglobin A1c % 10.6 % (4.27-6.07) H 01/09/21 17:10 Lactic Acid 1.5 mmol/L (0.5-2.2) 01/09/21 17:10 Calcium 8.7 mg/dL (8.5-10.3) 01/13/21 05:21 Iron 43 ug/dL (45-182) L 01/09/21 17:10 TIBC 158 ug/dL (250-450) L 01/09/21 17:10 % Saturation 27 % (20-50) 01/09/21 17:10 Transferrin 113 mg/dL (180-329) L 01/09/21 17:10 Ferritin 2283.0 ng/mL (23.9-336.2) H 01/09/21 17:10 Total Bilirubin 0.8 mg/dL (0.2-1.0) 01/09/21 17:10 AST 19 IU/L (10-42) 01/09/21 17:10 ALT 18 IU/L (10-60) 01/09/21 17:10 Alkaline Phosphatase 244 IU/L (42-121) H 01/09/21 17:10 Lactate Dehydrogenase 1201 IU/L (91-225) H 01/09/21 17:10 Troponin I High Sens 24.6 ng/L (2.3-19.7) H* 01/09/21 17:10 C-Reactive Protein 16.1 mg/dL (0-1.0) H 01/13/21 05:21 B-Natriuretic Peptide 262 pg/mL (5-100) H 01/13/21 05:21 Total Protein 5.6 g/dL (6.7-8.2) L 01/09/21 17:10 Albumin 2.3 g/dL (3.2-5.5) L 01/09/21 17:10 Globulin 3.3 g/dL (2.1-4.2) 01/09/21 17:10 Albumin/Globulin Ratio 0.7 (1.0-2.2) L 01/09/21 17:10 Lipase 14 U/L (22-51) L 01/09/21 17:10 Vitamin B12 825 pg/mL (180-914) 01/09/21 17:10 TSH 2.90 uIU/mL (0.34-5.60) 01/10/21 09:05 Nasal Adenovirus (PCR) NOT DETECTED 01/09/21 17:10 Nasal B. parapertussis DNA (PCR) NOT DETECTED 01/09/21 17:10 Nasal Coronavir 229E PCR NOT DETECTED 01/09/21 17:10 Nasal Coronavir HKU1 PCR NOT DETECTED 01/09/21 17:10 Nasal Coronavir NL63 PCR NOT DETECTED 01/09/21 17:10 Nasal Coronavir OC43 PCR NOT DETECTED 01/09/21 17:10 Nasal Enterovir/Rhinovir PCR NOT DETECTED 01/09/21 17:10 Nasal Influenza B PCR NOT DETECTED 01/09/21 17:10 Nasal Influenza A PCR NOT DETECTED 01/09/21 17:10 Nasal Parainfluen 1 PCR NOT DETECTED 01/09/21 17:10 Nasal Parainfluen 2 PCR NOT DETECTED 01/09/21 17:10 Nasal Parainfluen 3 PCR NOT DETECTED 01/09/21 17:10 Nasal Parainfluen 4 PCR NOT DETECTED 01/09/21 17:10 Nasal RSV (PCR) NOT DETECTED 01/09/21 17:10 Nasal B.pertussis DNA PCR NOT DETECTED 01/09/21 17:10 Nasal C.pneumoniae (PCR) NOT DETECTED 01/09/21 17:10 Bakari Human Metapneumo PCR NOT DETECTED 01/09/21 17:10 Nasal M.pneumoniae (PCR) NOT DETECTED 01/09/21 17:10 Nasal SARS-CoV-2 (PCR) NOT DETECTED 01/09/21 17:10 Blood Type A POSITIVE 01/13/21 08:08 Blood Type Recheck A POSITIVE 01/13/21 05:21 Antibody Screen NEGATIVE 01/13/21 08:08 Sepsis Event Note (H) - Evaluation Current Stage of Sepsis: Ruled out ABX Reporting Has patient been on IV antibiotics over the past 48 hours?: No Current Medications - Current Medications Current Medications: Active Medications Acetaminophen (Acetaminophen 650 Mg Supp) 650 mg IN Q6HR PRN PRN Reason: Pain or Fever > 38C (100.4F) Haloperidol (Haloperidol 5 Mg/Ml Vial) 1 mg IVP Q6H PRN PRN Reason: Agitation Last Admin: 01/14/21 08:10 Dose: 1 mg Documented by: Dextrose/Sodium Chloride (D5ns) 1,000 mls @ 83.333 mls/hr IV .Q12H [facility] Last Infusion: 01/14/21 11:54 Dose: 83.333 mls/hr Documented by: Insulin Aspart (Insulin Aspart 300 Unit/3 Ml Pen) 3 - 11 unit SUBQ 0800,1200,1700,2100 [facility]; Protocol Lorazepam (Lorazepam 0.5 Mg Tablet) 0.5 mg SL Q6H PRN PRN Reason: Anxiety Morphine Sulfate (Morphine 2 Mg/Ml Carpuject) 2 mg IVP Q2HR PRN PRN Reason: PAIN Last Admin: 01/14/21 08:10 Dose: 2 mg Documented by: Ondansetron HCl (Ondansetron 4 Mg/2 Ml Vial) 4 mg IVP Q6HR PRN PRN Reason: Nausea / Vomiting Sodium Chloride (Sodium Chloride Flush 0.9% 10 Ml Syringe) 10 ml IVP PRN PRN PRN Reason: NEEDED PER PROVIDER ORDERS Last Admin: 01/13/21 01:22 Dose: 10 ml Documented by: Sodium Chloride (Sodium Chloride Flush 0.9% 10 Ml Syringe) 10 ml IVP 0100,0900,1700 [facility] Last Admin: 01/14/21 08:10 Dose: Not Given Documented by: Magnesium Oxide [Magnesium] 400 mg PO DAILY 12/03/20 dronabinoL [Marinol] 5 - 10 mg PO DAILY 01/08/21 Cyclobenzaprine [Flexeril] 10 mg PO TID PRN 01/09/21 Docusate Sodium 100Mg Capsule [Colace 100Mg Capsule] 100 mg PO QID 01/09/21 Enoxaparin [Lovenox] 40 mg pe SUBQ DAILY 01/09/21 Insulin Lispro [Humalog] 0 unit SUBQ .SS 01/09/21 Insulin NPH Human [NovoLIN N] 0 unit SUBQ QPM 01/09/21 Metoclopramide [Reglan] 10 mg PO Q6H PRN 01/09/21 Ondansetron HCl [Zofran] 4 mg PO QID 01/09/21 Promethazine [Phenergan] 25 mg PO QPM PRN 01/09/21 Tamsulosin HCl [Flomax] 0.4 mg PO DAILY 01/09/21 oxyCODONE [Roxicodone] 5 mg PO Q6H PRN 01/09/21 Silver Sulfadiazine Cream [Silvadene Cream] 1 appful TOP PRN PRN 01/10/21
[2021-01-14] MEDS ORDERED: INSULIN ASPART 300 UNIT/3 ML PEN SUBQ ONE ×2 (12:02→16:57)
[2021-01-14] MEDS: INSULIN ASPART 300 UNIT/3 ML PEN SUBQ SCH ×3 (12:17→20:45)
[2021-01-14] MEDS ORDERED: GADOBUTROL 10 MMOL/10 ML VIAL ONE (15:42)
[2021-01-14] MEDS ORDERED: GADOBUTROL 10 MMOL/10 ML VIAL IVP ONE (16:19)
--- NOTE | 2021-01-14 16:33 | MRI Report ---
PROCEDURE: Brain W/WO INDICATIONS: mental status improved, metastatic disease? CONTRAST: IV CONTRAST: Gadavist ml: 9.3 TECHNIQUE: Noncontrast axial T1 spin echo, axial T2 fast spin echo, sagittal and axial FLAIR, coronal T2 fast sp in echo, axial gradient echo, axial diffusion and ADC through the brain. After the administration of contrast, axial and coronal T1 spin echo with fat saturation through the brain. COMPARISON: Head CT dated 01/12/2021 FINDINGS: Image quality: Degraded by motion artifact CSF spaces: Basal cisterns are patent. No extra-axial fl uid collections. Ventricles are normal in size and shape. Brain: No midline shift. No acute intracranial bleeds or masses. There are multiple enhancing nodul es within the bilateral cerebral hemispheres, which demonstrate high precontrast T1 and low-grade ech o signal intensity. The largest of these is within the right mid temporal lobe measuring roughly 8 mm diameter. The next largest is within the left superior medial frontal lobe measuring 7 mm diameter. There are multiple (roughly 30) smaller enhancing nodules which demonstrate low-grade echo signal int ensity. There is moderate FLAIR signal elevation surrounding these lesions, compatible with vasogenic edema. There is cerebral volume loss for age. There is periventricular white matter chronic small v essel ischemic change. The brainstem appears normal. Diffusion-weighted images demonstrate no acute ischemic insults. No chronic ischemic insults. Normal intravascular flow voids are present. Skull and face: Calvarial marrow is normal in signal. Orbits appear normal. Sinuses: Sinuses and mastoids appear clear. IMPRESSION: 1. Moderate to severe degree of metastatic disease to the bilateral cerebral hemispheres with surroun ding vasogenic edema. These nodules demonstrate low-grade echo signal intensity, consistent with faye chial hemorrhage versus melanin (e.g., possibly representing melanoma metastases). 2. No acute process. No midline shift. Reviewed by: Shelton Corbett MD on 01/14/2021 4:32 PM PDT Approved by: Shelton Corbett MD on 01/14/2021 4:32 PM PDT Station ID: [id number]
--- NOTE | 2021-01-14 16:41 | XRAY Report ---
PROCEDURE: Chest 1 View X-Ray INDICATIONS: Shortness of breath TECHNIQUE: One view of the chest was acquired. COMPARISON: 01/09/2021 FINDINGS: Surgical changes and devices: Right IJ central line terminates in the upper SVC. Lungs and pleura: No pleural effusions or pneumothorax. Increased interstitial markings in both lung s. Consolidative masslike opacity in the right hilar infrahilar region is increased from the comparis on CT angiogram on 01/09/2021. nonspecific. Mediastinum: Mediastinal contours appear normal. Heart size is normal. Bones and chest wall: No suspicious bony lesions. Overlying soft tissues appear unremarkable. IMPRESSION: Worsening consolidation in the right lung base. Worsening interstitial markings in both lungs. Reviewed by: Bandar Bonner MD on 01/14/2021 4:40 PM PDT Approved by: Bandar Bonner MD on 01/14/2021 4:40 PM PDT Station ID: [id number]
[2021-01-14] MEDS: CEFEPIME 2 GM in SODIUM CHLORIDE 0.9% MINIBAG 100 ML IV SCH (17:33)
[2021-01-14] MEDS ORDERED: INSULIN GLARGINE 300 UNIT/3 ML PEN SUBQ SCH ×2 (21:00)
[2021-01-15] MEDS: MORPHINE 2 MG/ML CARPUJECT IVP PRN ×3 (01:11→05:28)
[2021-01-15] MEDS: SODIUM CHLORIDE FLUSH 0.9% 10 ML SYRINGE IVP SCH ×2 (02:04→08:18)
[2021-01-15] MEDS: SODIUM CHLORIDE 0.9% 1,000 ML IV SCH (04:46)
[2021-01-15] MEDS: CEFEPIME 2 GM in SODIUM CHLORIDE 0.9% MINIBAG 100 ML IV SCH (04:46)
[2021-01-15 07:32] VITALS: BP 118/56
[2021-01-15] MEDS: INSULIN ASPART 300 UNIT/3 ML PEN SUBQ SCH (08:17)
--- NOTE | 2021-01-15 08:26 | DISCHARGE SUMMARY ---
Discharge Summary Admit Date: 01/09/21 Discharge Date: 01/15/21 Discharging Provider: Doug Dos Santos Primary Care Provider: Gil Freedman Code Status: Do Not Attempt Resuscitation Condition at Discharge: Stable Discharge Disposition: 50 Hospice/Home DC/Xfer - DIAGNOSES Admission Diagnoses: Respiratory failure with hypoxia Acral lentiginous melanoma Ulcer of left foot Diabetes BPH Elevated troponin Elevated BNP Discharge Diagnoses with Status of Each Condition: Respiratory failure with hypoxia: On supplemental oxygen for comfort. Patient going home on hospice. 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 Patient going home on hospice. Ulcer of left foot: We will discontinue wound VAC. Patient going home on hospice. Diabetes: Chronic BPH: Chronic Elevated troponin: Mild elevation. Likely due to demand ischemia. Stable Elevated BNP - HPI History of Present Illness: This is a 70-yrs-old male with a PMH significant for uncontrolled diabetes, left foot ulcer, diagnosis of positive Malignant Melanoma at October 2020 with locally advanced involving left leg, left plantar foot, left inguinal lymph nodes and left pelvic lymph nodes, surgical resection partial of left bottom foot with wound VAC, which was done at [facility], who was brought over from [facility] for shortness of breath. pt has been seen his wound care in the [facility] clinic. He is sent to the emergency department for evaluation of hypoxia. Pt was found Afebrile in ER but has only 80% sat on room air at ER with Tachycardia. pt also report he had 100 degree temperature at home with sweats and fatigue. pt report he Started Keytruda Dec, 2020. he will have combination immune therapy, pt is followup with oncologist Dr. Ilda Lee. Pt denies chest pain, headache. Routine laboratory tests show his WBC is 10, Hemoglobin is 9.2, BUN 22, creatinine 1.1, glucose 159, Troponin 25, BNP 199. CXR reveals Mild pulmonary vascular congestion, no focal infiltrate, pleural effusion or pneumothorax. Discussed the care goal with patient, patient request full code - HOSPITAL COURSE Hospital Course: Hypoxia was thought to be due to pneumonitis and/or pneumonia. The patient was started on vancomycin and cefepime as well as dexamethasone which was subsequently switched to prednisone daily.. He was also maintained on supplemental oxygen as needed. Further work-up included a CTA of the chest which was negative for PE. He also had a COVID-19 test done which was negative. Patient's mildly elevated troponin was thought to be due to demand ischemia. BNP of 262 was further worked up with a 2D echocardiogram which showed an overal l left ventricular systolic function of 60 to 65%. The patient's left foot ulcer was the site of aggressive resection of acral lentiginous lymphoma. He had wound VAC in place and followed up with the plastic surgeon by name Dr. Nii Mehta with [facility]. His wound care was usually at [facility] wound care As into the patient's hospital stay he had an episode of becoming nonverbal/not responsive to verbal or tactile stimuli. His pupils were reactive at the time and he was rolling back and forth in bed, using his arms with purposeful movement. Work-up included a CT of the brain without contrast which showed Stable hyperdense nodules which primarily involve the left frontal lobe. Differential diagnosis included hemorrhagic metastasis. Foci of petechial hemorrhage is also possible. This findings were reviewed with [facility] neurosurgery who agreed that it was likely consistent with metastatic melanoma Patient was also seen in the hospital by his oncologist Dr. Ilda Lee. In the cause of the patient's hospital stay he had waxing and waning confusion. It was decided that an MRI of the brain be done during one of his lucid periods. The MRI brain showed moderate to severe degree of metastatic disease to the bilateral cerebral hemispheres with surrounding vasogenic edema. The nodules demonstrate low-grade echo signal intensity consistent with petechial hemorrhage versus melanin possibly representing melanoma metastasis. There was no acute process and no midline shift. This findings were discussed with the patient's family who then decided on hospice for the patient. The patient was discharged home on hospice with supplemental oxygen. His wound VAC was discontinued prior to discharge from the hospital. - ALLERGIES Allergies/Adverse Reactions: Allergies Allergy/AdvReac Type Severity Reaction Status Date / Time enalapril AdvReac Respiratory Verified 01/09/21 15:21 - MEDICATIONS Home Medications: Ambulatory Orders Medication Instructions Recorded Confirmed Magnesium Oxide [Magnesium] 400 mg PO DAILY 12/03/20 01/10/21 Lidocaine/Prilocain 2.5% Cream 5 applic TOP UD #1 gm 12/10/20 01/10/21 [Emla 2.5% Cream] dronabinoL [Marinol] 5 - 10 mg PO DAILY 01/08/21 01/10/21 Cyclobenzaprine [Flexeril] 10 mg PO TID PRN 01/09/21 01/09/21 Docusate Sodium 100Mg Capsule 100 mg PO QID 01/09/21 01/09/21 [Colace 100Mg Capsule] Insulin Lispro [Humalog] 0 unit SUBQ .SS 01/09/21 01/10/21 Insulin NPH Human [NovoLIN N] 0 unit SUBQ QPM 01/09/21 01/10/21 Metoclopramide [Reglan] 10 mg PO Q6H PRN 01/09/21 01/10/21 Ondansetron HCl [Zofran] 4 mg PO QID 01/09/21 01/10/21 Promethazine [Phenergan] 25 mg PO QPM PRN 01/09/21 01/09/21 Tamsulosin HCl [Flomax] 0.4 mg PO DAILY 01/09/21 01/09/21 oxyCODONE [Roxicodone] 5 mg PO Q6H PRN 01/09/21 01/10/21 Silver Sulfadiazine Cream 1 appful TOP PRN PRN 01/10/21 01/10/21 [Silvadene Cream] Amox/Clav 875/125 [Augmentin 1 tablet PO Q12H 10 Days #10 tablet 01/15/21 875/125 Tab] - PHYSICAL EXAM AT DISCHARGE General Appearance: positive: No acute distress Eyes Bilateral: positive: PERRL, EOMI ENT: positive: No signs of dehydration Neck: positive: No JVD, Trachea midline Respiratory: positive: Other (Coarse breath sound but no overt wheezing or crackles) Cardiovascular: positive: Tachycardia Abdomen: positive: Non-tender, Nml bowel sounds, No distention. negative: Guarding, Rebound Skin: positive: Color nml, Other (wound vac in place) Extremities: positive: Nml appearance, No pedal edema Neurologic/Psychiatric: positive: Oriented x3, Depressed mood/affect - LABS Result Diagrams: 01/13/21 05:21 01/13/21 05:21 - SEPSIS Current Stage of Sepsis: Ruled out - TIME SPENT Time Spent in Discharge (Minutes): 30
--- NOTE | 2021-01-15 08:28 | Discharge Plan ---
Discharge Plan Problem Reviewed?: Yes Disposition: 50 Hospice/Home DC/Xfer Condition: Stable Prescriptions: Amox/Clav 875/125 [Augmentin 875/125 Tab] 1 tablet PO Q12H 10 Days #10 tablet Diet: Soft Activity Restrictions: Activity as Tolerated Health Concerns: You were admitted on 01/09/21 for hypoxia. You had been at the [facility] [place] treatment for malignant melanoma when the hypoxia became a concern. In the emergency room you were noted to have an oxygen saturation of 80% on room air. You have been treated at the [facility] by oncologist Dr. Ilda Lee. You were started on Keytruda in December 2020. Upon admission you were started on antibiotics which included vancomycin and cefepime and treated with prednisone for possible pneumonitis. You were also maintained on supplemental oxygen. You also have an ulcer on your left foot which was the site of resection of the melanoma. There is a wound VAC in place. You are followed by a plastic surgeon for this You had an episode of altered mental status during your hospital stay for which work-up included a CT of the brain. It showed multiple petechial hemorrhages. You experience intermittent confusion and subsequently had an MRI of the brain done. This showed moderate to severe degree of metastatic disease with surrounding vasogenic edema. You were seen by Dr. Ilda Simon in the hospital On further discussion with family and review of MR results, family decided on hospice. Consequently you are being discharged home on hospice. Plan of Treatment: You were admitted on 01/09/21 for hypoxia. You had been at the [facility] [place] treatment for malignant melanoma when the hypoxia became a concern. In the emergency room you were noted to have an oxygen saturation of 80% on room air. You have been treated at the [facility] by oncologist Dr. Ilda Lee. You were started on Keytruda in December 2020. Upon admission you were started on antibiotics which included vancomycin and cefepime and treated with prednisone for possible pneumonitis. You were also maintained on supplemental oxygen. You also have an ulcer on your left foot which was the site of resection of the melanoma. There is a wound VAC in place. You are followed by a plastic surgeon for this You had an episode of altered mental status during your hospital stay for which work-up included a CT of the brain. It showed multiple petechial hemorrhages. You experience intermittent confusion and subsequently had an MRI of the brain done. This showed moderate to severe degree of metastatic disease with surrounding vasogenic edema. You were seen by Dr. Ilda Simon in the hospital On further discussion with family and review of MR results, family decided on hospice. Consequently you are being discharged home on hospice. Care Goals: You were admitted on 01/09/21 for hypoxia. You had been at the [facility] [place] treatment for malignant melanoma when the hypoxia became a concern. In the emergency room you were noted to have an oxygen saturation of 80% on room air. You have been treated at the [facility] by oncologist Dr. Ilda Lee. You were started on Keytruda in December 2020. Upon admission you were started on antibiotics which included vancomycin and cefepime and treated with prednisone for possible pneumonitis. You were also maintained on supplemental oxygen. You also have an ulcer on your left foot which was the site of resection of the melanoma. There is a wound VAC in place. You are followed by a plastic surgeon for this You had an episode of altered mental status during your hospital stay for which work-up included a CT of the brain. It showed multiple petechial hemorrhages. You experience intermittent confusion and subsequently had an MRI of the brain done. This showed moderate to severe degree of metastatic disease with surrounding vasogenic edema. You were seen by Dr. Ilda Simon in the hospital On further discussion with family and review of MR results, family decided on hospice. Consequently you are being discharged home on hospice. Assessment: You were admitted on 01/09/21 for hypoxia. You had been at the [facility] [place] treatment for malignant melanoma when the hypoxia became a concern. In the emergency room you were noted to have an oxygen saturation of 80% on room air. You have been treated at the [facility] by oncologist Dr. Ilda Lee. You were started on Keytruda in December 2020. Upon admission you were started on antibiotics which included vancomycin and cefepime and treated with prednisone for possible pneumonitis. You were also maintained on supplemental oxygen. You also have an ulcer on your left foot which was the site of resection of the melanoma. There is a wound VAC in place. You are followed by a plastic surgeon for this You had an episode of altered mental status during your hospital stay for which work-up included a CT of the brain. It showed multiple petechial hemorrhages. You experience intermittent confusion and subsequently had an MRI of the brain done. This showed moderate to severe degree of metastatic disease with surrounding vasogenic edema. You were seen by Dr. Ilda Simno in the hospital On further discussion with family and review of MR results, family decided on hospice. Consequently you are being discharged home on hospice. No Smoking: If you smoke, Please STOP! Call for help. Follow-up with: Gil Freedman MD [Primary Care Provider] -
== END 2021-01-15 09:50 | disposition hospice, home (50) | DRG 189 ==
LOC: ED 15:00 → MS2 17:11
PROVIDERS: ADMIT Nurse Practitioner Gerontology; ATTEND Internal Medicine
PROC: 30233R1 Transfusion of Nonautologous Platelets into Peripheral Vein, Percutaneous Approach (ICD-10-PCS; principal; 2021-01-13)
DX: J96.01 Acute respiratory failure with hypoxia (principal); C43.72 Malignant melanoma of left lower limb, including hip; R11.2 Nausea with vomiting, unspecified; J18.9 Pneumonia, unspecified organism; E11.9 Type 2 diabetes mellitus without complications; R09.02 Hypoxemia; G93.41 Metabolic encephalopathy; R53.83 Other fatigue; R63.0 Anorexia; I61.8 Other nontraumatic intracerebral hemorrhage; C79.31 Secondary malignant neoplasm of brain; I24.8 Other forms of acute ischemic heart disease; J81.1 Chronic pulmonary edema; E87.1 Hypo-osmolality and hyponatremia; J90 Pleural effusion, not elsewhere classified; C43.9 Malignant melanoma of skin, unspecified; N40.0 Benign prostatic hyperplasia without lower urinary tract symptoms; E11.65 Type 2 diabetes mellitus with hyperglycemia; E11.621 Type 2 diabetes mellitus with foot ulcer; L97.529 Non-pressure chronic ulcer of other part of left foot with unspecified severity; Z79.4 Long term (current) use of insulin; R79.89 Other specified abnormal findings of blood chemistry; Z20.822 Contact with and (suspected) exposure to COVID-19; R00.0 Tachycardia, unspecified; F32.9 Major depressive disorder, single episode, unspecified; R41.0 Disorientation, unspecified; Z66 Do not resuscitate; I50.9 Heart failure, unspecified; R32 Unspecified urinary incontinence; D69.6 Thrombocytopenia, unspecified
CPT/HCPCS: 36415; 70450; 70553; 71045; 71275; 80048; 80053; 82607; 82728; 83036; 83540; 83605; 83615; 83690; 83880; 84443; 84466; 84484; 85025; 85045; 85610; 85651; 86140; 86850; 86900; 86901; 87040; 87631; 93005; 93306; 99283; 99285; A9270; A9585; J1650; J1815; J2060; J3370; J7512; P9035; Q9967; 0202U

== ENCOUNTER 2021-01-15 09:55 | Outpatient (CLI) | payer MEDICARE | END 2021-01-15 09:56 | disposition home or self-care (01) | LOC: EMS 09:55 | PROVIDERS: ATTEND Nurse Practitioner Gerontology | DX: R41.0 Disorientation, unspecified (principal); R53.83 Other fatigue; C43.9 Malignant melanoma of skin, unspecified; C79.31 Secondary malignant neoplasm of brain | CPT/HCPCS: A0425; A0428 ==

== ENCOUNTER 2021-01-15 09:55 | Outpatient (CLI) | payer MEDICARE | END 2021-01-15 09:56 | disposition home or self-care (01) | LOC: EMS 09:55 | PROVIDERS: ATTEND Nurse Practitioner Gerontology | DX: C43.9 Malignant melanoma of skin, unspecified (principal); C79.31 Secondary malignant neoplasm of brain; R41.0 Disorientation, unspecified; R53.83 Other fatigue; Z51.5 Encounter for palliative care | CPT/HCPCS: A0425; A0428 ==